=== PATIENT | female | born 1955 | race Caucasian/White ===

== ENCOUNTER 2019-01-24 11:21 | Inpatient (IN) | payer MEDICARE, OTHER ==
--- NOTE | 2019-01-24 12:02 | EDM.PDOC ---
ED HPI GENERAL MEDICAL PROBLEM - General Chief Complaint: ENT Problem Stated Complaint: EAR PAIN,THROAT PAIN, UNABLE TO SWALLOW Time Seen by Provider: 01/24/19 12:02 Source of Information: Reports: Patient History Limitations: Reports: No Limitations - History of Present Illness INITIAL COMMENTS - FREE TEXT/NARRATIVE: 63-year-old female presents to the ED with severe throat pain especially with swallowing. Patient states his throat became sore on evening January 21. Pain has increased over that timeframe. She's not eaten anything solid for 2 days. Pain is rating up into her right ear with swallowing. She is speaking with a hot potato voice. She has not had her tonsils removed to her knowledge. Has had some chills but not aware of any defined fever. Had to sleep sitting up last night due to difficulty clearing her secretions. Denies cough or sputum production. Onset: Gradual Onset Date: 01/21/19 Onset Time: 20:00 Duration: Constant, Getting Worse (Symptoms started on the evening of January 21 and have progressively worsened) Location: Reports: Neck (Severe right sided throat pain radiating into right ear. Occasional pain radiating to left ear) Quality: Reports: Ache, Other (Sharp stabbing pain with swallowing) Severity: Severe Improves with: Reports: None (9 out of 10) Worsens with: Reports: None Context: Reports: Other (spontaneous occurrence over the last 3 and half days). Denies: Activity, Exercise, Lifting, Sick Contact, Trauma Associated Symptoms: Reports: Fever/Chills, Loss of Appetite, Malaise, Nausea/ Vomiting. Denies: Confusion, Chest Pain, Cough, cough w sputum, Diaphoresis ( Chills without defined fever), Headaches (Unable to eat any solids), Rash, Seizure (Occasional nausea), Shortness of Breath, Syncope, Weakness Treatments [employer]: Reports: NSAIDS Throat Pain Score (Numeric/FACES): 9 - Related Data Allergies Allergy/AdvReac Type Severity Reaction Status Date / Time codeine Allergy Hallucinati Verified 07/14/18 14:20 ons lidocaine Allergy Blisters Uncoded 01/24/19 11:29 Home Meds: Home Meds Anti-Depressant? 3 mg PO DAILY 07/14/18 [History] Aspirin 325 mg PO DAILY 07/14/18 [History] Clobetasol [Clobetasol 0.05%] 1 applic TOP ASDIRECTED 07/14/18 [History] Dextroamphetamine/Amphetamine [Adderall] 30 mg PO DAILY 07/14/18 [History] Fish Oil. 1 tab PO DAILY 07/14/18 [History] Furosemide [Lasix] 20 mg PO ASDIRECTED PRN 07/14/18 [History] LORazepam 1 mg PO BID 07/14/18 [History] Levothyroxine 75 mcg PO ACBREAKFAST 07/14/18 [History] Losartan Potassium 12.5 mg PO DAILY 07/14/18 [History] Naproxen 500 mg PO ASDIRECTED PRN 07/14/18 [History] QUEtiapine Fumarate [Quetiapine Fumarate] 400 mg PO BEDTIME 07/14/18 [History] Rosuvastatin Calcium 20 mg PO DAILY 07/14/18 [History] Triamterene/Hydrochlorothiazid [Triamterene-HCTZ 37.5-25 MG] 1 tab PO DAILY 06/21 [History] Past Medical History Cardiovascular History: Reports: High Cholesterol, Hypertension Musculoskeletal History: Reports: Arthritis, Osteoarthritis Psychiatric History: Reports: Anxiety, Depression Endocrine/Metabolic History: Reports: Hypothyroidism - Past Surgical History Musculoskeletal Surgical History: Reports: Other (See Below) Other Musculoskeletal Surgeries/Procedures:: Had extra rib removed Social & Family History - Family History Family Medical History: Noncontributory - Tobacco Use Smoking Status *Q: Current Every Day Smoker Years of Tobacco use: 50 Packs/Tins Daily: 1 Used Tobacco, but Quit: No Second Hand Smoke Exposure: No - Caffeine Use Caffeine Use: Reports: Coffee - Recreational Drug Use Recreational Drug Use: No - Living Situation & Occupation Living situation: Reports: Occupation: Unemployed ED ROS ENT - Review of Systems Review Of Systems: See Below Constitutional: Reports: Chills, Malaise, Weakness, Fatigue, Decreased Appetite (Unable to eat solids. Barely able to keep liquids going.) HEENT: Reports: Glasses, Throat Pain, Throat Swelling Respiratory: Reports: No Symptoms (Severe throat pain bilaterally a little worse in the right side as compared to the left.) Cardiovascular: Reports: No Symptoms Endocrine: Reports: No Symptoms GI/Abdominal: Reports: Decreased Appetite : Reports: No Symptoms Musculoskeletal: Reports: No Symptoms Skin: Reports: No Symptoms Neurological: Reports: No Symptoms Psychiatric: Reports: No Symptoms Hematologic/Lymphatic: Reports: No Symptoms Immunologic: Reports: No Symptoms ED EXAM, ENT - Physical Exam Exam: See Below Exam Limited By: No Limitations General Appearance: Alert, WD/WN, Mild Distress, Other (Does speak with a hot potato voice.) Eye Exam: Bilateral Eye: Normal Inspection Ears: Normal External Exam, Normal TMs, Other (Plenty of cerumen in the left ear canal.) Mouth/Throat: Dry Mucous Membrane, Peritonsillar Mass, Pharyngeal Erythema ( Right side with developing peritonsillar abscess while.), Throat Pain, Throat Swelling (Severe), Other (For the mouth is normal). No: Tongue Swelling ( swelling of the soft palate on the right side appreciated) Head: Atraumatic, Normocephalic Neck: Limited Range of Motion, Lymphadenopathy (R) (Marked pain on palpation of the submandibular node and gland area ), Other (There is some swelling right side of her neck in zone 2). No: Lymphadenopathy (L) Respiratory/Chest: No Respiratory Distress, Lungs Clear, Normal Breath Sounds, No Accessory Muscle Use, Chest Non-Tender Cardiovascular: Normal Peripheral Pulses, Regular Rate, Rhythm, No Edema, No Gallop, No Murmur, No Rub GI/Abdominal: Normal Bowel Sounds, Soft, Non-Tender, No Organomegaly Back: Normal Inspection, Full Range of Motion Extremities: Normal Inspection, Normal Range of Motion, Non-Tender Neurological: Alert, Oriented, CN II-XII Intact, Normal Cognition Skin: Warm, Dry, Intact, Normal Color, No Rash Course - Vital Signs Last Recorded V/S: Last Vital Signs Temp 37.1 C 01/24/19 11:30 Pulse 83 01/24/19 11:30 Resp 14 01/24/19 11:30 BP 128/53 L 01/24/19 11:30 Pulse Ox 96 01/24/19 11:30 - Orders/Labs/Meds Orders: Active Orders 24 hr Category Date Time Status CULTURE BLOOD [BC] Stat Lab 01/24/19 13:00 Received CULTURE BLOOD [BC] Stat Lab 01/24/19 13:15 Received STREP SCRN A RAPID W CULT CONF [RM] Stat Lab 01/24/19 12:09 Ordered Dextrose 5%-0.9% NaCl [Dextrose 5%-Normal Saline] 1,000 Med 01/24/19 12:30 Active ml IV ASDIRECTED cefTRIAXone [Rocephin] 2 gm Med 01/24/19 12:30 Active Sodium Chloride 0.9% [Normal Saline] 100 ml IV Q24H Blood Culture x2 Reflex Set [OM.PC] Stat Oth 01/24/19 12:09 Ordered Medication Orders Ceftriaxone Sodium 2 gm/ (Sodium Chloride) 100 mls @ 200 mls/hr IV Q24H [facility] Last Admin: 01/24/19 13:28 Dose: 200 mls/hr Dextrose/Sodium Chloride (Dextrose 5%-Normal Saline) 1,000 mls @ 999 mls/hr IV ASDIRECTED [facility] Last Admin: 01/24/19 13:28 Dose: 999 mls/hr Labs: Laboratory Tests 01/24/19 01/24/19 Range/Units 13:00 13:00 WBC 18.37 H (3.98-10.04) K/mm3 RBC 4.70 (3.98-5.22) M/mm3 Hgb 13.0 (11.2-15.7) gm/L Hct 39.0 (34.1-44.9) % MCV 83.0 (79.4-94.8) fl MCH 27.7 (25.6-32.2) pg MCHC 33.3 (32.2-35.5) g/dl RDW Std Deviation 45.3 (36.4-46.3) fL Plt Count 291 D (182-369) K/mm3 MPV 9.4 (9.4-12.3) fl Neutrophils % (Manual) 85 H (40-60) % Band Neutrophils % 0 (0-10) % Lymphocytes % (Manual) 12 L (20-40) % Atypical Lymphs % 0 % Monocytes % (Manual) 3 (2-10) % Eosinophils % (Manual) 0 L (0.7-5.8) % Basophils % (Manual) 0 L (0.1-1.2) Platelet Estimate Adequate RBC Morph Comment Normal Sodium 137 (136-145) mEq/L Potassium 3.1 L (3.5-5.1) mEq/L Chloride 98 (98-107) mEq/L Carbon Dioxide 29 (21-32) mEq/L Anion Gap 13.1 (5-15) BUN 10 (7-18) mg/dL Creatinine 0.7 (0.55-1.02) mg/dL Est Cr Clr Drug Dosing 83.73 mL/min Estimated GFR (MDRD) > 60 (>60) mL/min BUN/Creatinine Ratio 14.3 (14-18) Glucose 98 (80-115) mg/dL Calcium 9.0 (8.5-10.1) mg/dL Total Bilirubin 0.5 (0.2-1.0) mg/dL AST 16 (15-37) U/L ALT 26 (14-59) U/L Alkaline Phosphatase 89 (46-116) U/L C-Reactive Protein 37.4 H* (<1.0) mg/dL Total Protein 7.2 (6.4-8.2) g/dl Albumin 3.4 (3.4-5.0) g/dl Globulin 3.8 gm/dL Albumin/Globulin Ratio 0.9 L (1-2) Meds: Medications Generic Name Dose Route Start Last Admin Trade Name Freq PRN Reason Stop Dose Admin Ceftriaxone Sodium 2 gm/ 100 mls @ 200 mls/hr 01/24/19 12:30 01/24/19 13:28 Sodium Chloride IV 200 mls/hr Q24H JAVID Administration Dextrose/Sodium Chloride 1,000 mls @ 999 mls/hr 01/24/19 12:30 01/24/19 13:28 Dextrose 5%-Normal Saline IV 999 mls/hr ASDIRECTED JAVID Administration Discontinued Medications Generic Name Dose Route Start Last Admin Trade Name Freq PRN Reason Stop Dose Admin Clindamycin Phosphate Confirm 01/24/19 14:10 01/24/19 14:21 Cleocin Administered 01/24/19 14:11 Not Given Dose 900 mg .ROUTE .STK-MED ONE Dexamethasone 10 mg 01/24/19 12:22 01/24/19 13:13 Dexamethasone IVPUSH 01/24/19 12:23 10 mg ONETIME ONE Administration Hydromorphone HCl 1 mg 01/24/19 12:10 01/24/19 13:08 Dilaudid IVPUSH 01/24/19 12:11 1 mg ONETIME ONE Administration Clindamycin Phosphate 900 mg/ 106 mls @ 200 mls/hr 01/24/19 13:59 01/24/19 14 :22 Sodium Chloride IV 01/24/19 14:30 200 mls/hr ONETIME ONE Administration Iopamidol 100 ml 01/24/19 12:59 01/24/19 12:59 Isovue-300 (61%) IVPUSH 01/24/19 13:00 100 ml ONETIME ONE Administration Ondansetron HCl 4 mg 01/24/19 12:10 01/24/19 13:12 Zofran IVPUSH 01/24/19 12:11 4 mg ONETIME ONE Administration Sodium Chloride 10 ml 01/24/19 12:59 01/24/19 12:59 Saline Flush FLUSH 01/24/19 13:00 10 ml ONETIME ONE Administration - Radiology Interpretation Free Text/Narrative:: 63-year-old female presents to the ED with gradually worsening sore throat over the last 3-1/2 days. She can barely swallow at this time. Low-grade fever and some chills. Severe pain radiating up into her right ear with swallowing occasionally into the left ear. Examination reveals a developing peritonsillar abscess on the right side with anterior shift of the soft palate. I was unable to visualize the tonsil itself. She does have significant trismus. She can still open 2-1/2 cm in the midline. Plan IV will be D5 normal saline at open. Will give her Dilaudid 1 mg with Reglan 10 mg IV for pain relief. She will have routine labs including blood cultures 2. And throat culture. Will give her Rocephin 2 g IV Unasyn his blood cultures 2 been collected. Dexamethasone 10 mg IV as well. She will have CT soft tissues of the neck to see if there is a peritonsillar abscess large enough to require drainage. - Re-Assessments/Exams Free Text/Narrative Re-Assessment/Exam: 01/24/19 13:57 Lab reveals an elevated white count is at 18.37 with a left shift of 85% neutrophils and no bands. Hemoglobin is 13.0 with hematocrit of 39.0. MCV is 83.0. Sodium 137 with potassium low at 3.1 as she's not been able to eat solids for 3 days. Chloride is 98 with a bicarbonate of 29. Anion gap is 13.1. BUN is 10 with a creatinine of 0.7. GFR remains greater than 60. Glucose is 98 with a calcium of 9.0. Liver function is normal. C-reactive protein is 37.4. Total protein is 7.2 with an albumin fraction of 3.4. CT of the neck soft tissue with IV contrast performed. Identified uvula to be thickened compatible with soft tissue swelling. Soft tissue swelling is noted within the right parapharyngeal soft tissues which causes mass effect with midline shift and narrowing of the hypopharynx. This soft tissue swelling occurs inferiorly to almost the level of the vocal cords. Small low density finding is seen within the right side of the palatine tonsils suspicious for small developing abscess which measures around 1.5 cm. No adenopathy is seen. Small portion of the visualized lung apices are clear. Parotid and submandibular glands are within normal limits. Paranasal sinuses showed nothing acute. Previous cervical spine surgery noted with scattered degenerative changes. 01/24/19 14:00: Placed a call to [facility] in [place] in regards to ENT phone consultation.Dr Mendieta is alteration hand for [facility] hospitals . They will locate him and have him call us back. 01/24/19 14:40: Dr Mendieta did call back. He agrees that if the abscess is not larger than 2-2.5 cm it does not require surgical drainage. He advised continuing Rocephin 2 g every 24 hours and clindamycin 600 mg every 6 hours and dexamethasone for a total of 20 mg. I have spoken with Dr. Serna alteration hand hospitalist and he has agreed to admitting the patient to the med surgery floor on telemetry. Of note the patient only received dexamethasone 10 mg while in the ED under my care. Another 10 mg could be given in 3 hours or so. Departure - Departure Time of Disposition: 14:55 Disposition: Admitted As Inpatient 64 Condition: Fair Clinical Impression: Peritonsillar abscess - Discharge Information *PRESCRIPTION DRUG MONITORING PROGRAM REVIEWED*: No *COPY OF PRESCRIPTION DRUG MONITORING REPORT IN PATIENT SHAYNE: No Referrals: Kaur Pena PA [Primary Care Provider] - Forms: ED Department Discharge - My Orders Last 24 Hours: My Active Orders 01/24/19 12:09 STREP SCRN A RAPID W CULT CONF [RM] Stat Blood Culture x2 Reflex Set [OM.PC] Stat 01/24/19 12:30 Dextrose 5%-0.9% NaCl [Dextrose 5%-Normal Saline] 1,000 ml IV ASDIRECTED cefTRIAXone [Rocephin] 2 gm Sodium Chloride 0.9% [Normal Saline] 100 ml IV Q24H 01/24/19 13:00 CULTURE BLOOD [BC] Stat 01/24/19 13:15 CULTURE BLOOD [BC] Stat - Assessment/Plan Last 24 Hours: My Active Orders 01/24/19 12:09 STREP SCRN A RAPID W CULT CONF [RM] Stat Blood Culture x2 Reflex Set [OM.PC] Stat 01/24/19 12:30 Dextrose 5%-0.9% NaCl [Dextrose 5%-Normal Saline] 1,000 ml IV ASDIRECTED cefTRIAXone [Rocephin] 2 gm Sodium Chloride 0.9% [Normal Saline] 100 ml IV Q24H 01/24/19 13:00 CULTURE BLOOD [BC] Stat 01/24/19 13:15 CULTURE BLOOD [BC] Stat
[2019-01-24] MEDS ORDERED: HYDROmorphone 1 MG/ML Syringe IVPUSH ONE (12:10)
[2019-01-24] MEDS ORDERED: Ondansetron 4 MG/2 ML SDV IVPUSH ONE (12:10)
[2019-01-24] MEDS ORDERED: Dexamethasone 10 MG/ML SDV IVPUSH ONE ×2 (12:22→19:20)
[2019-01-24] MEDS ORDERED: Dextrose 5%-0.9% NaCl 1,000 ML IV SCH (12:30)
[2019-01-24] MEDS ORDERED: Sodium Chloride 0.9% 10 ML Syringe FLUSH ONE (12:59)
[2019-01-24] MEDS ORDERED: Iopamidol 612 MG/ML 100 ML Bottle IVPUSH ONE (12:59)
[2019-01-24] MEDS: cefTRIAXone 2 GM in Sodium Chloride 0.9% 100 ML IV SCH (13:28)
--- NOTE | 2019-01-24 13:42 | CT ---
CT neck Technique: Multiple axial sections were obtained from above the external auditory canal inferiorly to the lung apices. Intravenous contrast was utilized. Findings: Uvula is thickened compatible with soft tissue swelling. Soft tissue swelling is noted within the right parapharyngeal soft tissues which causes mass effect with midline shift and narrowing of the hypopharynx. This soft tissue swelling occurs inferiorly to almost the level of the vocal cords. Small low density finding is seen within the right side of the palatine tonsils suspicious for small developing abscess which measures around 1.5 cm. No adenopathy is seen. Small portion of the visualized lung apices are clear. Parotid and submandibular salivary glands are within normal limits. Paranasal sinuses showed nothing acute. Previous cervical spine surgery is noted with scattered degenerative change. Impression: 1. Soft tissue swelling within the right parapharyngeal soft tissues as noted above. Probable developing small abscess within the region of the right palatine tonsils measuring about 1.5 cm. 2. Soft tissue swelling within the uvula. Diagnostic code #5
[2019-01-24] MEDS ORDERED: Clindamycin Phosphate 900 MG in Sodium Chloride 0.9% 100 ML IV ONE (13:59)
[2019-01-24] MEDS ORDERED: Clindamycin Phosphate 900 MG/6 ML SDV ONE (14:10)
--- NOTE | 2019-01-24 15:12 | PCM.HP ---
H&P History of Present Illness - General Date of Service: 01/24/19 Admit Problem/Dx: Admission Diagnosis/Problem Admission Diagnosis/Problem Peritonsillar abscess Source of Information: Patient, Old Records, Provider, RN, RN Notes Reviewed History Limitations: Reports: No Limitations - History of Present Illness Initial Comments - Free Text/Narative: Eve Uribe is a 63 yo female who presented to our ED on 01/24/19 with throat pain and difficulty swallowing. She reports she first noted soreness in her throat on the evening of January 21 and it has progressively gotten worse. She's not had anything solid E for 2 days. Pain radiates up into her right ear when she swallows and she is also noted to have a hot potato voice. She reports chills but no fever she is aware of. She does note that she had a sleep sitting up in a chair the night prior to arrival due to difficulty with secretions. Denies any cough or sputum production. She believes she still has her tonsils. in the ED temperature 37.1 Celsius. Pulse 83. Respirations 14. Blood pressure 120/53. Pulse ox 96%. Labs are obtained: WBC is 18.37. RBC 4.70. Hemoglobin 13.0. Hematocrit 39.0. She is normocytic. Platelets are good at 291,000. Neutrophils are elevated at 85%. There is no bandemia. Sodium is 137. Potassium 3.1. Chloride 98. Carbon dioxide 29. Anion gap is 13.1. BUN is 10. Creatinine 0.7. EGFR greater than 60. Glucose is 98. Calcium 9.0. Total bilirubin 0.5. AST is 16, ALT 26, alkaline phosphatase 89. CRP is very high at 37.4. Protein 7.2. Albumin 3.4. On physical exam she is noted to have significant throat swelling along with swelling to the right side of her neck in zone 2. She is also noted to have a developing peritonsillar abscess on the right side with anterior shift of the soft palate. She is given a 1 L bolus of D5NS and blood cultures are obtained. CT scan of the neck is obtained and interpreted by Dr. Alston as "1. Soft tissue swelling within the right parapharyngeal soft tissues as noted above. Probable developing small abscess within the region of the right palatine tonsil measuring about 1.5 cm. 2. Soft tissue swelling within the uvula." She is started on 2 g IV Rocephin and given 10 mg IV push dexamethasone. Dr. Mendieta, on-call ENT for both hospitals in [place] is contacted and agrees that if the abscess is not larger than 2- 2.5 cm it will not require surgical drainage. he recommends continuing Rocephin 2 g every 24 hours and clindamycin 600 every 6 hours. He also recommend that the max is on for total 20 mg. Rapid strep screen was negative. She carries a history of HLD, HTN, arthritis, osteoarthritis, anxiety, vertigo, depression, hypothyroidism. She is a current daily smoker. She is a full code. Her PCP is Kaur ePna PA-C. She is subsequently admitted to the medical floor for management of her developing peritonsillar abscess. Throat Pain Score (Numeric/FACES): 9 - Related Data Allergies/Adverse Reactions: Allergies Allergy/AdvReac Type Severity Reaction Status Date / Time codeine Allergy Hallucinati Verified 01/24/19 15:48 ons lidocaine Allergy Blisters Uncoded 01/24/19 15:48 Home Medications: Home Meds Aspirin 325 mg PO DAILY 07/14/18 [History] Clobetasol [Clobetasol 0.05%] 1 applic TOP ASDIRECTED 07/14/18 [History] Dextroamphetamine/Amphetamine [Adderall] 30 mg PO DAILY 07/14/18 [History] Furosemide [Lasix] 20 mg PO DAILY 07/14/18 [History] LORazepam 1 mg PO BID PRN 07/14/18 [History] Levothyroxine 75 mcg PO ACBREAKFAST 07/14/18 [History] Losartan Potassium 12.5 mg PO DAILY 07/14/18 [History] QUEtiapine Fumarate [Quetiapine Fumarate] 200 mg PO BEDTIME 07/14/18 [History] Rosuvastatin Calcium 20 mg PO Q48H 07/14/18 [History] Triamterene/Hydrochlorothiazid [Triamterene-HCTZ 37.5-25 MG] 1 tab PO DAILY 06/21 [History] Acetaminophen [Tylenol Arthritis] 1,300 mg PO BID 01/24/19 [History] Cariprazine Hydrochloride [Vraylar] 3 mg PO 1300 01/24/19 [History] Cholecalciferol (Vitamin D3) [Vitamin D3] 5,000 unit PO DAILY 01/24/19 [History] Cyclobenzaprine [Flexeril] 5 mg PO DAILY PRN 01/24/19 [History] Docusate Sodium [Colace] 100 mg PO DAILY PRN 01/24/19 [History] Gabapentin [Neurontin] 300 mg PO DAILY 01/24/19 [History] Gabapentin [Neurontin] 600 mg PO BEDTIME 01/24/19 [History] Gluc HCl/Csa/Job Hy/Hyalur Ac [Glucosamine Chondroitin] 1 cap PO DAILY [History] Magnesium Oxide 400 mg PO DAILY 01/24/19 [History] Potassium 198 mg PO DAILY 01/24/19 [History] amLODIPine [Norvasc] 5 mg PO DAILY 01/24/19 [History] Past Medical History Cardiovascular History: Reports: High Cholesterol, Hypertension Musculoskeletal History: Reports: Arthritis, Osteoarthritis Psychiatric History: Reports: Anxiety, Depression Endocrine/Metabolic History: Reports: Hypothyroidism - Past Surgical History Musculoskeletal Surgical History: Reports: Other (See Below) Other Musculoskeletal Surgeries/Procedures:: Had extra rib removed Social & Family History - Family History Family Medical History: Noncontributory - Tobacco Use Smoking Status *Q: Current Every Day Smoker Years of Tobacco use: 50 Packs/Tins Daily: 1 Used Tobacco, but Quit: No Second Hand Smoke Exposure: No - Caffeine Use Caffeine Use: Reports: Coffee - Recreational Drug Use Recreational Drug Use: No - Living Situation & Occupation Living situation: Reports: Occupation: Unemployed H&P Review of Systems - Review of Systems: Review Of Systems: See Below General: Reports: Chills, Malaise, Weakness, Fatigue. Denies: Fever HEENT: Reports: Sore Throat (worse on right side - radiating up into right ear ) , Other (Throat swelling, difficulty/pain with eating ). Denies: Eye Pain, Headaches, Rhinitis Pulmonary: Reports: No Symptoms. Denies: Shortness of Breath, Wheezing, Cough, Sputum Cardiovascular: Reports: No Symptoms. Denies: Chest Pain, Palpitations, Dyspnea on Exertion, Edema Gastrointestinal: Reports: No Symptoms, Decreased Appetite. Denies: Abdominal Pain, Constipation, Diarrhea, Nausea, Vomiting Genitourinary: Reports: No Symptoms. Denies: Pain Musculoskeletal: Reports: No Symptoms Skin: Reports: No Symptoms. Denies: Cyanosis Psychiatric: Reports: No Symptoms. Denies: Confusion Neurological: Reports: Trouble Speaking (2/2 pain), Weakness. Denies: Dizziness , Numbness, Tingling, Difficulty Walking, Gait Disturbance Hematologic/Lymphatic: Reports: No Symptoms Immunologic: Reports: No Symptoms Exam - Exam Exam: See Below - Vital Signs Vital Signs: Last Vital Signs Temp 98.7 F 01/24/19 11:30 Pulse 83 01/24/19 11:30 Resp 14 01/24/19 11:30 BP 128/53 L 01/24/19 11:30 Pulse Ox 96 01/24/19 11:30 Weight: 221 lb - Exam Quality Assessment: DVT Prophylaxis General: Alert, Oriented, Cooperative HEENT: Conjunctiva Clear, EACs Clear, Hearing Intact, Nares Patent, Other ("Hot potato voice"; peritonsilar mass, Peritonsillar erythma with apparent developing abscess on right; Swelling of soft palate on right; ), PERRLA. No: Mucosa Moist & [place] (dry) Neck: Trachea Midline, Lymphadenopathy (right ), Other (Rght neck swelling in zone 2). No: Full Range of Motion (2/2 pain) Lungs: Clear to Auscultation, Normal Respiratory Effort Cardiovascular: Regular Rate, Regular Rhythm GI/Abdominal Exam: Normal Bowel Sounds, Soft, Non-Tender, No Distention (Female) Exam: Deferred Rectal (Female) Exam: Deferred Back Exam: Normal Inspection, Full Range of Motion Extremities: Normal Inspection, Normal Range of Motion, Non-Tender, No Pedal Edema, Normal Capillary Refill Peripheral Pulses: 2+: Radial (L), Radial (R), Dorsalis Pedis (L), Dorsalis Pedis (R) Skin: Warm, Dry, Intact Neurological: Cranial Nerves Intact (Grossly ) Neuro Extensive - Mental Status: Alert, Oriented x3, Normal Mood/Affect - Patient Data Lab Results Last 24 hrs: Laboratory Results - last 24 hr 01/24/19 01/24/19 Range/Units 13:00 13:00 WBC 18.37 H (3.98-10.04) K/mm3 RBC 4.70 (3.98-5.22) M/mm3 Hgb 13.0 (11.2-15.7) gm/L Hct 39.0 (34.1-44.9) % MCV 83.0 (79.4-94.8) fl MCH 27.7 (25.6-32.2) pg MCHC 33.3 (32.2-35.5) g/dl RDW Std Deviation 45.3 (36.4-46.3) fL Plt Count 291 D (182-369) K/mm3 MPV 9.4 (9.4-12.3) fl Neutrophils % (Manual) 85 H (40-60) % Band Neutrophils % 0 (0-10) % Lymphocytes % (Manual) 12 L (20-40) % Atypical Lymphs % 0 % Monocytes % (Manual) 3 (2-10) % Eosinophils % (Manual) 0 L (0.7-5.8) % Basophils % (Manual) 0 L (0.1-1.2) Platelet Estimate Adequate RBC Morph Comment Normal Sodium 137 (136-145) mEq/L Potassium 3.1 L (3.5-5.1) mEq/L Chloride 98 (98-107) mEq/L Carbon Dioxide 29 (21-32) mEq/L Anion Gap 13.1 (5-15) BUN 10 (7-18) mg/dL Creatinine 0.7 (0.55-1.02) mg/dL Est Cr Clr Drug Dosing 83.73 mL/min Estimated GFR (MDRD) > 60 (>60) mL/min BUN/Creatinine Ratio 14.3 (14-18) Glucose 98 (80-115) mg/dL Calcium 9.0 (8.5-10.1) mg/dL Total Bilirubin 0.5 (0.2-1.0) mg/dL AST 16 (15-37) U/L ALT 26 (14-59) U/L Alkaline Phosphatase 89 (46-116) U/L C-Reactive Protein 37.4 H* (<1.0) mg/dL Total Protein 7.2 (6.4-8.2) g/dl Albumin 3.4 (3.4-5.0) g/dl Globulin 3.8 gm/dL Albumin/Globulin Ratio 0.9 L (1-2) Result Diagrams: 01/24/19 13:00 01/24/19 13:00 - Problem List (1) Hypokalemia SNOMED Code(s): 87098614 ICD Code: E87.6 - HYPOKALEMIA Status: Acute Current Visit: Yes (2) Peritonsillar abscess SNOMED Code(s): 41574778 ICD Code: J36 - PERITONSILLAR ABSCESS Status: Acute Current Visit: Yes Problem List Initiated/Reviewed/Updated: Yes Orders Last 24hrs: Active Orders 24 hr Category Date Time Status Patient Status [ADT] Routine ADT 01/24/19 15:09 Active CULTURE BLOOD [BC] Stat Lab 01/24/19 13:00 Received CULTURE BLOOD [BC] Stat Lab 01/24/19 13:15 Received STREP SCRN A RAPID W CULT CONF [RM] Stat Lab 01/24/19 12:09 Ordered Dextrose 5%-0.9% NaCl [Dextrose 5%-Normal Saline] 1,000 Med 01/24/19 12:30 Active ml IV ASDIRECTED cefTRIAXone [Rocephin] 2 gm Med 01/24/19 12:30 Active Sodium Chloride 0.9% [Normal Saline] 100 ml IV Q24H Blood Culture x2 Reflex Set [OM.PC] Stat Oth 01/24/19 12:09 Ordered Medication Orders Ceftriaxone Sodium 2 gm/ (Sodium Chloride) 100 mls @ 200 mls/hr IV Q24H [facility] Last Admin: 01/24/19 13:28 Dose: 200 mls/hr Dextrose/Sodium Chloride (Dextrose 5%-Normal Saline) 1,000 mls @ 999 mls/hr IV ASDIRECTED JAVID Last Admin: 01/24/19 13:28 Dose: 999 mls/hr Assessment/Plan Comment:: I/P: Acute: Peritonsillar abscess -Reports throat pain getting progressively worse starting 01/21/19 -Unable to swallow solid foods - no good intake for past 2 days -Pain more on right side, radiating up into right ear -CT scan obtained in ED on 01/24/19: * 1. Soft tissue swelling within the right parapharyngeal soft tissues as noted above. Probable developing small abscess within the region of the right palatine tonsils measuring about 1.5 cm. * 2. Soft tissue swelling within the uvula -Rapid strep negative -Blood cultures pending -WBC 18.37 -CRP 37.4 -Rocephin 2gm given in ED - Continue -1L D5NS bolus given in ED -Dr. Mendieta, ENT, contacted in ED: * Agrees no surgical drainage required if abscess is less than 2-2.5 cm * Recommends continuing Rocephin 2 g every 24 hours * Recommends adding clindamycin 600 mg every 6 hours * Recommends dexamethasone for total of 20 mg. -Clindamycin started in ED - continue -Dexamethasone 10mg given in ED - consider second dose -Clear liquid diet - advance as tolerated -IV fluids as ordered -NSAIDs for pain Hypokalemia -Potassium 3.1 -Likely 2/2 poor oral intake, unable to take home supplementation 2/2 pain -Supplement Tobacco use disorder -Daily smoker -Nicotine patch ordered -Cessation counseling on discharge Chronic: HLD HTN Arthritis OA Depression Anxiety Hypothyroidism Vertigo Plan: Admit to medical floor Other orders as indicated above Home medications as ordered Routine AM labs DVT prophylaxis: QUE cummings and ambulation Code status: Full code; PCP: Kaur Pena PA-C
[2019-01-24] MEDS ORDERED: Ondansetron 4 MG/2 ML SDV IV PRN (15:30)
[2019-01-24] MEDS ORDERED: Nicotine 21 MG/24 Hr Patch TRDERM SCH (15:45)
[2019-01-24] MEDS: Sodium Chloride 0.9% 1,000 ML IV SCH (16:14)
[2019-01-24] MEDS: Potassium Chloride 10 MEQ in Premix Bag 1 BAG IV SCH ×6 (16:15→21:34)
[2019-01-24] MEDS ORDERED: LORazepam 1 MG Tab PO PRN (16:30)
[2019-01-24] MEDS ORDERED: Docusate Sodium 100 MG Cap PO PRN (16:30)
[2019-01-24] MEDS: Ibuprofen 600 MG Tab PO PRN (18:53)
[2019-01-24] MEDS: Gabapentin 600 MG Tab PO SCH (20:10)
[2019-01-24] MEDS: QUEtiapine 100 MG Tab PO SCH (20:10)
[2019-01-24] MEDS ORDERED: Clindamycin Phosphate 900 MG in Sodium Chloride 0.9% 100 ML IV SCH (22:00)
[2019-01-24] MEDS: Clindamycin Phosphate in D5W 900 MG in Premix Bag 1 BAG IV SCH ×2 (22:41)
[2019-01-24] MEDS: Aluminum Hydroxide/Magnesium Hydroxide/Simethicone Susp 30 ML Cup PO PRN (22:55)
[2019-01-25] MEDS: Sodium Chloride 0.9% 1,000 ML IV SCH (01:54)
[2019-01-25] MEDS: Levothyroxine 75 MCG Tab PO SCH (05:16)
[2019-01-25] MEDS: Clindamycin Phosphate in D5W 900 MG in Premix Bag 1 BAG IV SCH ×8 (05:17→22:35)
[2019-01-25] MEDS ORDERED: Hydrochlorothiazide/Triamterene 25-37.5 MG Cap PO SCH (09:00)
[2019-01-25] MEDS ORDERED: NICOTINE PATCH REMOVAL TRDERM SCH (09:00)
[2019-01-25] MEDS: amLODIPine 5 MG Tab PO SCH (09:06)
[2019-01-25] MEDS: Aspirin 325 MG Tab.EC PO SCH (09:07)
[2019-01-25] MEDS: Gabapentin 300 MG Cap PO SCH (09:07)
[2019-01-25] MEDS: Magnesium Oxide 400 MG Tab PO SCH (09:07)
[2019-01-25] MEDS: Losartan 25 MG Tab PO SCH (09:07)
[2019-01-25] MEDS: Nicotine 14 MG/24 Hr Patch TRDERM SCH (09:08)
--- NOTE | 2019-01-25 09:47 | PCM.PN ---
- General Info Date of Service: 01/25/19 Admission Dx/Problem (Free Text): Admission Diagnosis/Problem Admission Diagnosis/Problem Peritonsillar abscess Subjective Update: Eve did well overnight. Denies fever or chills. Able to tolerate liquid diet and would like to advance diet. Day 2 of IV antibiotics. Received a second dose of dexamethasone 10 mg last night. Functional Status: Reports: Pain Controlled - Review of Systems General: Reports: No Symptoms. Denies: Fever HEENT: Reports: Sore Throat Pulmonary: Reports: No Symptoms. Denies: Shortness of Breath, Cough Cardiovascular: Reports: No Symptoms. Denies: Chest Pain Gastrointestinal: Reports: No Symptoms. Denies: Abdominal Pain - Patient Data Vitals - Most Recent: Last Vital Signs Temp 97.5 F 01/25/19 03:40 Pulse 78 01/25/19 03:40 Resp 16 01/25/19 03:40 BP 107/72 01/25/19 09:07 Pulse Ox 94 L 01/25/19 03:40 Weight - Most Recent: 229 lb 8 oz I&O - Last 24 Hours: Intake & Output 01/24/19 01/25/19 01/25/19 22:59 06:59 14:59 Intake Total 1270 2319 Output Total 2170 Balance 1270 149 Lab Results Last 24 Hours: Laboratory Results - last 24 hr 01/24/19 01/24/19 01/25/19 Range/Units 13:00 13:00 05:30 WBC 18.37 H 15.16 H (3.98-10.04) K/mm3 RBC 4.70 4.21 (3.98-5.22) M/mm3 Hgb 13.0 11.7 (11.2-15.7) gm/L Hct 39.0 35.2 (34.1-44.9) % MCV 83.0 83.6 (79.4-94.8) fl MCH 27.7 27.8 (25.6-32.2) pg MCHC 33.3 33.2 (32.2-35.5) g/dl RDW Std Deviation 45.3 45.1 (36.4-46.3) fL Plt Count 291 D 288 (182-369) K/mm3 MPV 9.4 10.0 (9.4-12.3) fl Neut % (Auto) 89.3 H (34.0-71.1) % Lymph % (Auto) 8.1 L (19.3-51.7) % Craig % (Auto) 2.4 L (4.7-12.5) % Eos % (Auto) 0 L (0.7-5.8) Baso % (Auto) 0.0 L (0.1-1.2) % Neut # (Auto) 13.54 H (1.56-6.13) K/mm3 Lymph # (Auto) 1.23 (1.18-3.74) K/mm3 Craig # (Auto) 0.36 (0.24-0.36) K/mm3 Eos # (Auto) 0.00 L (0.04-0.36) K/mm3 Baso # (Auto) 0.00 L (0.01-0.08) K/mm3 Neutrophils % (Manual) 85 H (40-60) % Band Neutrophils % 0 (0-10) % Lymphocytes % (Manual) 12 L (20-40) % Atypical Lymphs % 0 % Monocytes % (Manual) 3 (2-10) % Eosinophils % (Manual) 0 L (0.7-5.8) % Basophils % (Manual) 0 L (0.1-1.2) Manual Slide Review Abnormal smear Platelet Estimate Adequate RBC Morph Comment Normal Sodium 137 (136-145) mEq/L Potassium 3.1 L (3.5-5.1) mEq/L Chloride 98 (98-107) mEq/L Carbon Dioxide 29 (21-32) mEq/L Anion Gap 13.1 (5-15) BUN 10 (7-18) mg/dL Creatinine 0.7 (0.55-1.02) mg/dL Est Cr Clr Drug Dosing 83.73 mL/min Estimated GFR (MDRD) > 60 (>60) mL/min BUN/Creatinine Ratio 14.3 (14-18) Glucose 98 (80-115) mg/dL Calcium 9.0 (8.5-10.1) mg/dL Magnesium (1.8-2.4) mg/dl Total Bilirubin 0.5 (0.2-1.0) mg/dL AST 16 (15-37) U/L ALT 26 (14-59) U/L Alkaline Phosphatase 89 (46-116) U/L C-Reactive Protein 37.4 H* (<1.0) mg/dL Total Protein 7.2 (6.4-8.2) g/dl Albumin 3.4 (3.4-5.0) g/dl Globulin 3.8 gm/dL Albumin/Globulin Ratio 0.9 L (1-2) 01/25/19 Range/Units 05:30 WBC (3.98-10.04) K/mm3 RBC (3.98-5.22) M/mm3 Hgb (11.2-15.7) gm/L Hct (34.1-44.9) % MCV (79.4-94.8) fl MCH (25.6-32.2) pg MCHC (32.2-35.5) g/dl RDW Std Deviation (36.4-46.3) fL Plt Count (182-369) K/mm3 MPV (9.4-12.3) fl Neut % (Auto) (34.0-71.1) % Lymph % (Auto) (19.3-51.7) % Craig % (Auto) (4.7-12.5) % Eos % (Auto) (0.7-5.8) Baso % (Auto) (0.1-1.2) % Neut # (Auto) (1.56-6.13) K/mm3 Lymph # (Auto) (1.18-3.74) K/mm3 Craig # (Auto) (0.24-0.36) K/mm3 Eos # (Auto) (0.04-0.36) K/mm3 Baso # (Auto) (0.01-0.08) K/mm3 Neutrophils % (Manual) (40-60) % Band Neutrophils % (0-10) % Lymphocytes % (Manual) (20-40) % Atypical Lymphs % % Monocytes % (Manual) (2-10) % Eosinophils % (Manual) (0.7-5.8) % Basophils % (Manual) (0.1-1.2) Manual Slide Review Platelet Estimate RBC Morph Comment Sodium 143 (136-145) mEq/L Potassium 3.8 (3.5-5.1) mEq/L Chloride 106 (98-107) mEq/L Carbon Dioxide 25 (21-32) mEq/L Anion Gap 15.8 H (5-15) BUN 11 (7-18) mg/dL Creatinine 0.7 (0.55-1.02) mg/dL Est Cr Clr Drug Dosing 83.73 mL/min Estimated GFR (MDRD) > 60 (>60) mL/min BUN/Creatinine Ratio 15.7 (14-18) Glucose 129 H (80-115) mg/dL Calcium 9.1 (8.5-10.1) mg/dL Magnesium 2.4 (1.8-2.4) mg/dl Total Bilirubin (0.2-1.0) mg/dL AST (15-37) U/L ALT (14-59) U/L Alkaline Phosphatase (46-116) U/L C-Reactive Protein 21.2 H* (<1.0) mg/dL Total Protein (6.4-8.2) g/dl Albumin (3.4-5.0) g/dl Globulin gm/dL Albumin/Globulin Ratio (1-2) [place] Results Last 24 Hours: Microbiology 01/24/19 15:13 Quick Strep Confirmation Culture - Preliminary Throat Group A Streptococcus Rapid Screen - Final NEGATIVE STREP A SCREEN REFERENCE RANGE: NEGATIVE Med Orders - Current: Current Medications Al Hydroxide/Mg Hydroxide (Mag-Al Plus) 30 ml PO Q4H PRN PRN Reason: Heartburn Last Admin: 01/24/19 22:55 Dose: 30 ml Amlodipine Besylate (Norvasc) 5 mg PO DAILY [facility] Last Admin: 01/25/19 09:06 Dose: 5 mg Aspirin (Ecotrin) 325 mg PO DAILY [facility] Last Admin: 01/25/19 09:07 Dose: 325 mg Docusate Sodium (Colace) 100 mg PO DAILY PRN PRN Reason: Constipation Gabapentin (Neurontin) 300 mg PO DAILY [facility] Last Admin: 01/25/19 09:07 Dose: 300 mg Gabapentin (Neurontin) 600 mg PO BEDTIME [facility] Last Admin: 01/24/19 20:10 Dose: 600 mg Ceftriaxone Sodium 2 gm/ (Sodium Chloride) 100 mls @ 200 mls/hr IV Q24H [facility] Last Admin: 01/24/19 13:28 Dose: 200 mls/hr Clindamycin Phosphate 900 mg/ (Premix) 50 mls @ 100 mls/hr IV Q8H [facility] Last Admin: 01/25/19 05:17 Dose: 100 mls/hr Ibuprofen (Motrin) 600 mg PO Q6H PRN PRN Reason: Pain Last Admin: 01/24/19 18:53 Dose: 600 mg Levothyroxine Sodium (Levothyroxine) 75 mcg PO ACBREAKFAST [facility] Last Admin: 01/25/19 05:16 Dose: 75 mcg Lorazepam (Ativan) 1 mg PO BID PRN PRN Reason: Anxiety Last Admin: 01/25/19 00:43 Dose: 1 mg Losartan Potassium (Cozaar) 12.5 mg PO DAILY [facility] Last Admin: 01/25/19 09:07 Dose: 12.5 mg Magnesium Oxide (Magnesium Oxide) 400 mg PO DAILY [facility] Last Admin: 01/25/19 09:07 Dose: 400 mg Miscellaneous Information (Remove Patch) 1 ea TRDERM DAILY [facility] Last Admin: 01/25/19 09:09 Dose: Not Given Nicotine (Habitrol) 14 mg TRDERM DAILY [facility] Last Admin: 01/25/19 09:08 Dose: Not Given Non-Formulary Medication (Cariprazine Hydrochloride [Vraylar]) 3 mg PO 1300 [facility] Non-Formulary Medication (Dextroamphetamine/Amphetamine [Adderall]) 30 mg PO DAILY [facility] Ondansetron HCl (Zofran) 4 mg IV Q6H PRN PRN Reason: Nausea/Vomiting Quetiapine Fumarate (Seroquel) 200 mg PO BEDTIME [facility] Last Admin: 01/24/19 20:10 Dose: 200 mg Discontinued Medications Clindamycin Phosphate (Cleocin) Confirm Administered Dose 900 mg .ROUTE .STK- MED ONE Stop: 01/24/19 14:11 Last Admin: 01/24/19 14:21 Dose: Not Given Dexamethasone (Dexamethasone) 10 mg IVPUSH ONETIME ONE Stop: 01/24/19 12:23 Last Admin: 01/24/19 13:13 Dose: 10 mg Dexamethasone (Dexamethasone) 10 mg IVPUSH ONETIME ONE Stop: 01/24/19 19:21 Last Admin: 01/24/19 20:00 Dose: 10 mg Hydromorphone HCl (Dilaudid) 1 mg IVPUSH ONETIME ONE Stop: 01/24/19 12:11 Last Admin: 01/24/19 13:08 Dose: 1 mg Dextrose/Sodium Chloride (Dextrose 5%-Normal Saline) 1,000 mls @ 999 mls/hr IV ASDIRECTED JAVID Last Admin: 01/24/19 13:28 Dose: 999 mls/hr Clindamycin Phosphate 900 mg/ (Sodium Chloride) 106 mls @ 200 mls/hr IV ONETIME ONE Stop: 01/24/19 14:30 Last Admin: 01/24/19 14:22 Dose: 200 mls/hr Clindamycin Phosphate 900 mg/ (Sodium Chloride) 106 mls @ 200 mls/hr IV Q8H [facility] Sodium Chloride (Normal Saline) 1,000 mls @ 100 mls/hr IV ASDIRECTED JAVID Stop: 01/25/19 03:16 Last Admin: 01/25/19 01:54 Dose: 100 mls/hr Potassium Chloride 10 meq/ (Premix) 100 mls @ 100 mls/hr IV Q1H [facility] Stop: 01/24/19 21:44 Last Admin: 01/24/19 21:34 Dose: 100 mls/hr Iopamidol (Isovue-300 (61%)) 100 ml IVPUSH ONETIME ONE Stop: 01/24/19 13:00 Last Admin: 01/24/19 12:59 Dose: 100 ml Miscellaneous Information (Remove Patch) 1 ea TRDERM DAILY [facility] Nicotine (Habitrol) 21 mg TRDERM DAILY [facility] Last Admin: 01/24/19 15:42 Dose: Not Given Ondansetron HCl (Zofran) 4 mg IVPUSH ONETIME ONE Stop: 01/24/19 12:11 Last Admin: 01/24/19 13:12 Dose: 4 mg Sodium Chloride (Saline Flush) 10 ml FLUSH ONETIME ONE Stop: 01/24/19 13:00 Last Admin: 01/24/19 12:59 Dose: 10 ml Triamterene/HCTZ (Dyazide 25-37.5 Mg) 1 each PO DAILY [facility]AV[facility] - Exam Quality Assessment: No: Supplemental Oxygen General: Alert, Oriented HEENT: Pupils Equal, Pupils Reactive Neck: Supple Lungs: Clear to Auscultation, Normal Respiratory Effort Cardiovascular: Regular Rate, Regular Rhythm GI/Abdominal Exam: Normal Bowel Sounds, Soft, Non-Tender, No Distention Extremities: Normal Inspection, Normal Range of Motion, Non-Tender, No Pedal Edema Skin: Warm, Dry, Intact Neurological: No New Focal Deficit Psy/Mental Status: Alert, Normal Affect, Normal Mood - Problem List & Annotations (1) Hypokalemia SNOMED Code(s): 30913448 Code(s): E87.6 - HYPOKALEMIA Status: Acute Current Visit: Yes (2) Peritonsillar abscess SNOMED Code(s): 25899340 Code(s): J36 - PERITONSILLAR ABSCESS Status: Acute Current Visit: Yes - Problem List Review Problem List Initiated/Reviewed/Updated: Yes - My Orders Last 24 Hours: My Active Orders 01/25/19 Lunch Soft Diet [DIET] - Plan Plan:: I/P: Acute: Peritonsillar abscess -Reports throat pain getting progressively worse starting 01/21/19 -tolerated clear liquid diet this morning, will advance to soft diet at lunch and if she continues to tolerate this we will advance to a full diet this afternoon -Pain more on right side, radiating up into right ear - improved -CT scan obtained in ED on 01/24/19: * 1. Soft tissue swelling within the right parapharyngeal soft tissues as noted above. Probable developing small abscess within the region of the right palatine tonsils measuring about 1.5 cm. * 2. Soft tissue swelling within the uvula -Rapid strep negative - culture pending -Blood cultures pending -WBC decrease to 15 -CRP decrease to 21.2 -Rocephin 2gm given in ED - Continue -1L D5NS bolus given in ED -Dr. Mendieta, ENT, contacted in ED: * Agrees no surgical drainage required if abscess is less than 2-2.5 cm * Recommends continuing Rocephin 2 g every 24 hours * Recommends adding clindamycin 600 mg every 6 hours * Recommends dexamethasone for total of 20 mg. -Clindamycin started in ED - continue -Dexamethasone 10mg given in ED - second dose given -NSAIDs for pain patient will need a total of at least 2 days IV antibiotics and then can switch her to by mouth. Hypokalemia - resolved -Potassium 3.8 -Likely 2/2 poor oral intake, unable to take home supplementation 2/2 pain -Supplement Tobacco use disorder -Daily smoker -Nicotine patch ordered -Cessation counseling on discharge Chronic: HLD HTN Arthritis OA Depression Anxiety Hypothyroidism Vertigo Plan: Admit to medical floor Other orders as indicated above Home medications as ordered Routine AM labs DVT prophylaxis: QUE hose and ambulation Code status: Full code; PCP: Kaur Pena PA-C plan discharge tomorrow
[2019-01-25] MEDS: cefTRIAXone 2 GM in Sodium Chloride 0.9% 100 ML IV SCH (12:16)
[2019-01-25] MEDS: QUEtiapine 100 MG Tab PO SCH (20:36)
[2019-01-25] MEDS: Gabapentin 600 MG Tab PO SCH (20:36)
[2019-01-25] MEDS: Aluminum Hydroxide/Magnesium Hydroxide/Simethicone Susp 30 ML Cup PO PRN (22:13)
[2019-01-26] MEDS: Ibuprofen 600 MG Tab PO PRN ×3 (04:05→19:23)
[2019-01-26] MEDS: Levothyroxine 75 MCG Tab PO SCH (06:32)
[2019-01-26] MEDS: Clindamycin Phosphate in D5W 900 MG in Premix Bag 1 BAG IV SCH ×6 (06:33→21:58)
[2019-01-26] MEDS: DEXTROAMPHETAMINE PO SCH ×2 (08:42→08:43)
[2019-01-26] MEDS: AMPHETAMINE PO SCH ×2 (08:42→08:43)
[2019-01-26] MEDS: CARIPRAZINE HYDROCHLORIDE 3 MG PO SCH ×2 (08:43→12:28)
[2019-01-26] MEDS: amLODIPine 5 MG Tab PO SCH (08:48)
[2019-01-26] MEDS: Aspirin 325 MG Tab.EC PO SCH (08:49)
[2019-01-26] MEDS: Gabapentin 300 MG Cap PO SCH (08:49)
[2019-01-26] MEDS: Losartan 25 MG Tab PO SCH (08:49)
[2019-01-26] MEDS: Magnesium Oxide 400 MG Tab PO SCH (08:49)
[2019-01-26] MEDS: Nicotine 14 MG/24 Hr Patch TRDERM SCH (08:50)
[2019-01-26] MEDS: cefTRIAXone 2 GM in Sodium Chloride 0.9% 100 ML IV SCH (11:43)
--- NOTE | 2019-01-26 16:01 | PCM.PN ---
- General Info Date of Service: 01/26/19 Admission Dx/Problem (Free Text): Admission Diagnosis/Problem Admission Diagnosis/Problem Peritonsillar abscess Subjective Update: January 25, 2019 Eve did well overnight. Denies fever or chills. Able to tolerate liquid diet and would like to advance diet. Day 2 of IV antibiotics. Received a second dose of dexamethasone 10 mg last night. January 26, 2019 Patient complains of increasing swelling in the back of her throat and pain. She denies difficulty swallowing. She has been afebrile and has had a decrease in her C-reactive protein. Functional Status: Reports: Pain Controlled - Review of Systems General: Reports: No Symptoms. Denies: Fever, Chills HEENT: Reports: Sore Throat Pulmonary: Reports: No Symptoms Cardiovascular: Reports: No Symptoms Gastrointestinal: Reports: No Symptoms. Denies: Abdominal Pain - Patient Data Vitals - Most Recent: Last Vital Signs Temp 98.1 F 01/26/19 11:37 Pulse 75 01/26/19 11:37 Resp 16 01/26/19 11:37 BP 134/62 01/26/19 11:37 Pulse Ox 97 01/26/19 11:37 Weight - Most Recent: 233 lb 9.6 oz I&O - Last 24 Hours: Intake & Output 01/26/19 01/26/19 01/26/19 06:59 14:59 22:59 Intake Total 1150 360 Output Total 1200 Balance -50 360 Lab Results Last 24 Hours: Laboratory Results - last 24 hr 01/26/19 01/26/19 Range/Units 05:20 05:20 WBC 15.13 H (3.98-10.04) K/mm3 RBC 4.14 (3.98-5.22) M/mm3 Hgb 11.5 (11.2-15.7) gm/L Hct 34.7 (34.1-44.9) % MCV 83.8 (79.4-94.8) fl MCH 27.8 (25.6-32.2) pg MCHC 33.1 (32.2-35.5) g/dl RDW Std Deviation 45.7 (36.4-46.3) fL Plt Count 315 (182-369) K/mm3 MPV 9.8 (9.4-12.3) fl Neut % (Auto) 72.5 H (34.0-71.1) % Lymph % (Auto) 19.2 L (19.3-51.7) % [place] % (Auto) 7.6 (4.7-12.5) % Eos % (Auto) 0.3 L (0.7-5.8) Baso % (Auto) 0.1 (0.1-1.2) % Neut # (Auto) 10.96 H (1.56-6.13) K/mm3 Lymph # (Auto) 2.91 (1.18-3.74) K/mm3 [place] # (Auto) 1.15 H (0.24-0.36) K/mm3 Eos # (Auto) 0.04 (0.04-0.36) K/mm3 Baso # (Auto) 0.02 (0.01-0.08) K/mm3 Sodium 142 (136-145) mEq/L Potassium 3.5 (3.5-5.1) mEq/L Chloride 107 (98-107) mEq/L Carbon Dioxide 25 (21-32) mEq/L Anion Gap 13.5 (5-15) BUN 16 (7-18) mg/dL Creatinine 0.7 (0.55-1.02) mg/dL Est Cr Clr Drug Dosing 83.73 mL/min Estimated GFR (MDRD) > 60 (>60) mL/min BUN/Creatinine Ratio 22.9 H (14-18) Glucose 93 (80-115) mg/dL Calcium 8.5 (8.5-10.1) mg/dL Magnesium 2.1 (1.8-2.4) mg/dl C-Reactive Protein 8.8 H* (<1.0) mg/dL [facility] Results Last 24 Hours: Microbiology 01/24/19 15:13 Quick Strep Confirmation Culture - Final Throat Beta Streptococcus Group F Group A Streptococcus Rapid Screen - Final NEGATIVE STREP A SCREEN REFERENCE RANGE: NEGATIVE 01/24/19 13:15 Aerobic Blood Culture - Preliminary Blood - Venous - Lab Draw NO GROWTH AFTER 2 DAYS Anaerobic Blood Culture - Preliminary NO GROWTH AFTER 2 DAYS 01/24/19 13:00 Aerobic Blood Culture - Preliminary Blood - Venous NO GROWTH AFTER 2 DAYS Anaerobic Blood Culture - Preliminary NO GROWTH AFTER 2 DAYS Med Orders - Current: Current Medications Al Hydroxide/Mg Hydroxide (Mag-Al Plus) 30 ml PO Q4H PRN PRN Reason: Heartburn Last Admin: 01/25/19 22:13 Dose: 30 ml Amlodipine Besylate (Norvasc) 5 mg PO DAILY [facility] Last Admin: 01/26/19 08:48 Dose: 5 mg Aspirin (Ecotrin) 325 mg PO DAILY [facility] Last Admin: 01/26/19 08:49 Dose: 325 mg Docusate Sodium (Colace) 100 mg PO DAILY PRN PRN Reason: Constipation Gabapentin (Neurontin) 300 mg PO DAILY [facility] Last Admin: 01/26/19 08:49 Dose: 300 mg Gabapentin (Neurontin) 600 mg PO BEDTIME [facility] Last Admin: 01/25/19 20:36 Dose: 600 mg Ceftriaxone Sodium 2 gm/ (Sodium Chloride) 100 mls @ 200 mls/hr IV Q24H [facility] Last Admin: 01/26/19 11:43 Dose: 200 mls/hr Clindamycin Phosphate 900 mg/ (Premix) 50 mls @ 100 mls/hr IV Q8H [facility] Last Admin: 01/26/19 13:56 Dose: 100 mls/hr Ibuprofen (Motrin) 600 mg PO Q6H PRN PRN Reason: Pain Last Admin: 01/26/19 12:26 Dose: 600 mg Levothyroxine Sodium (Levothyroxine) 75 mcg PO ACBREAKFAST [facility] Last Admin: 01/26/19 06:32 Dose: 75 mcg Lorazepam (Ativan) 1 mg PO BID PRN PRN Reason: Anxiety Last Admin: 01/25/19 00:43 Dose: 1 mg Losartan Potassium (Cozaar) 12.5 mg PO DAILY [facility] Last Admin: 01/26/19 08:49 Dose: 12.5 mg Magnesium Oxide (Magnesium Oxide) 400 mg PO DAILY [facility] Last Admin: 01/26/19 08:49 Dose: 400 mg Miscellaneous Information (Remove Patch) 1 ea TRDERM DAILY [facility] Last Admin: 01/26/19 08:51 Dose: Not Given Nicotine (Habitrol) 14 mg TRDERM DAILY [facility] Last Admin: 01/26/19 08:50 Dose: Not Given Ondansetron HCl (Zofran) 4 mg IV Q6H PRN PRN Reason: Nausea/Vomiting Cariprazine Hydrochloride [ Vraylar] 3 Mg - Pt's Own Med 3 each PO 1300 [facility] Last Admin: 01/26/19 12:28 Dose: Not Given Dextroamphetamine/Amphetamine [ Adderall] 30 Mg Pt 's Own Med 0 each PO DAILY [facility] Last Admin: 01/26/19 08:43 Dose: Not Given Quetiapine Fumarate (Seroquel) 200 mg PO BEDTIME [facility] Last Admin: 01/25/19 20:36 Dose: 200 mg Discontinued Medications Clindamycin Phosphate (Cleocin) Confirm Administered Dose 900 mg .ROUTE .STK- MED ONE Stop: 01/24/19 14:11 Last Admin: 01/24/19 14:21 Dose: Not Given Dexamethasone (Dexamethasone) 10 mg IVPUSH ONETIME ONE Stop: 01/24/19 12:23 Last Admin: 01/24/19 13:13 Dose: 10 mg Dexamethasone (Dexamethasone) 10 mg IVPUSH ONETIME ONE Stop: 01/24/19 19:21 Last Admin: 01/24/19 20:00 Dose: 10 mg Hydromorphone HCl (Dilaudid) 1 mg IVPUSH ONETIME ONE Stop: 01/24/19 12:11 Last Admin: 01/24/19 13:08 Dose: 1 mg Dextrose/Sodium Chloride (Dextrose 5%-Normal Saline) 1,000 mls @ 999 mls/hr IV ASDIRECTED [facility] Last Admin: 01/24/19 13:28 Dose: 999 mls/hr Clindamycin Phosphate 900 mg/ (Sodium Chloride) 106 mls @ 200 mls/hr IV ONETIME ONE Stop: 01/24/19 14:30 Last Admin: 01/24/19 14:22 Dose: 200 mls/hr Clindamycin Phosphate 900 mg/ (Sodium Chloride) 106 mls @ 200 mls/hr IV Q8H [facility] Sodium Chloride (Normal Saline) 1,000 mls @ 100 mls/hr IV ASDIRECTED [facility] Stop: 01/25/19 03:16 Last Admin: 01/25/19 01:54 Dose: 100 mls/hr Potassium Chloride 10 meq/ (Premix) 100 mls @ 100 mls/hr IV Q1H [facility] Stop: 01/24/19 21:44 Last Admin: 01/24/19 21:34 Dose: 100 mls/hr Iopamidol (Isovue-300 (61%)) 100 ml IVPUSH ONETIME ONE Stop: 01/24/19 13:00 Last Admin: 01/24/19 12:59 Dose: 100 ml Miscellaneous Information (Remove Patch) 1 ea TRDERM DAILY [facility] Nicotine (Habitrol) 21 mg TRDERM DAILY [facility] Last Admin: 01/24/19 15:42 Dose: Not Given Ondansetron HCl (Zofran) 4 mg IVPUSH ONETIME ONE Stop: 01/24/19 12:11 Last Admin: 01/24/19 13:12 Dose: 4 mg Sodium Chloride (Saline Flush) 10 ml FLUSH ONETIME ONE Stop: 01/24/19 13:00 Last Admin: 01/24/19 12:59 Dose: 10 ml Triamterene/HCTZ (Dyazide 25-37.5 Mg) 1 each PO DAILY [facility] - Exam Quality Assessment: No: Supplemental Oxygen General: Alert, Oriented HEENT: Pupils Equal, Other (Continue trying the right posterior throat without erythema.) Lungs: Clear to Auscultation, Normal Respiratory Effort Cardiovascular: Regular Rate, Regular Rhythm Extremities: Normal Inspection, Normal Range of Motion, Non-Tender, No Pedal Edema Skin: Other (Malar red rash that is asymptomatic.) - Problem List & Annotations (1) Hypokalemia SNOMED Code(s): 74161966 Code(s): E87.6 - HYPOKALEMIA Status: Acute Current Visit: Yes (2) Peritonsillar abscess SNOMED Code(s): 19849900 Code(s): J36 - PERITONSILLAR ABSCESS Status: Acute Current Visit: Yes - Problem List Review Problem List Initiated/Reviewed/Updated: Yes - My Orders Last 24 Hours: My Active Orders 01/26/19 Lunch Regular Diet [DIET] - Plan Plan:: I/P: Acute: Peritonsillar abscess -Reports throat pain getting progressively worse starting 01/21/19 -tolerated soft diet this morning, will advance to regular diet at lunch -Pain more on right side, radiating up into right ear - improved overall but slightly worse since yesterday likely secondary to the steroids wearing off -CT scan obtained in ED on 01/24/19: * 1. Soft tissue swelling within the right parapharyngeal soft tissues as noted above. Probable developing small abscess within the region of the right palatine tonsils measuring about 1.5 cm. * 2. Soft tissue swelling within the uvula -Rapid strep negative - culture pending -Blood cultures pending -WBC decrease to 15, but did not make much change overnight likely secondary to steroid effect -CRP decrease to 8.8 -Rocephin 2gm given in ED - Continue -1L D5NS bolus given in ED -Dr. Mendieta, ENT, contacted in ED: * Agrees no surgical drainage required if abscess is less than 2-2.5 cm * Recommends continuing Rocephin 2 g every 24 hours * Recommends adding clindamycin 600 mg every 6 hours * Recommends dexamethasone for total of 20 mg. -Clindamycin started in ED - continue -Dexamethasone 10mg given in ED - second dose given -NSAIDs for pain patient will need a total of at least 2 days IV antibiotics and then can switch her to by mouth. Hypokalemia - resolved -Potassium 3.8 -Likely 2/2 poor oral intake, unable to take home supplementation 2/2 pain -Supplement Tobacco use disorder -Daily smoker -Nicotine patch ordered -Cessation counseling on discharge Malar steroid rash resolving -Patient has a facial rash that is likely secondary to the steroids. It is better than yesterday afternoon. Chronic: HLD HTN Arthritis OA Depression Anxiety Hypothyroidism Vertigo Plan: Continue on IV antibiotics today and reevaluate tomorrow for home oral medicines. Home medications as ordered Routine AM labs DVT prophylaxis: QUE hose and ambulation Code status: Full code; PCP: Kaur Pena PA-C plan discharge tomorrow
[2019-01-26] MEDS: Gabapentin 600 MG Tab PO SCH (20:01)
[2019-01-26] MEDS: QUEtiapine 100 MG Tab PO SCH (20:01)
[2019-01-27] MEDS: Ibuprofen 600 MG Tab PO PRN (01:30)
[2019-01-27] MEDS: Levothyroxine 75 MCG Tab PO SCH (05:28)
[2019-01-27] MEDS: Clindamycin Phosphate in D5W 900 MG in Premix Bag 1 BAG IV SCH ×4 (05:28→13:34)
[2019-01-27] MEDS: Magnesium Oxide 400 MG Tab PO SCH (08:39)
[2019-01-27] MEDS: Gabapentin 300 MG Cap PO SCH (08:39)
[2019-01-27] MEDS: Losartan 25 MG Tab PO SCH (08:39)
[2019-01-27] MEDS: Aspirin 325 MG Tab.EC PO SCH (08:39)
[2019-01-27] MEDS: amLODIPine 5 MG Tab PO SCH (08:40)
[2019-01-27] MEDS: Nicotine 14 MG/24 Hr Patch TRDERM SCH (08:40)
[2019-01-27] MEDS: AMPHETAMINE PO SCH (08:41)
[2019-01-27] MEDS: DEXTROAMPHETAMINE PO SCH (08:41)
[2019-01-27] MEDS: cefTRIAXone 2 GM in Sodium Chloride 0.9% 100 ML IV SCH (12:33)
[2019-01-27] MEDS: CARIPRAZINE HYDROCHLORIDE 3 MG PO SCH (12:34)
--- NOTE | 2019-01-27 15:03 | PCM.DCSUM1 ---
Discharge Summary - Hospital Course HPI Initial Comments: Eve Uribe is a 63 yo female who presented to our ED on 01/24/19 with throat pain and difficulty swallowing. She reports she first noted soreness in her throat on the evening of January 21 and it has progressively gotten worse. She's not had anything solid E for 2 days. Pain radiates up into her right ear when she swallows and she is also noted to have a hot potato voice. She reports chills but no fever she is aware of. She does note that she had a sleep sitting up in a chair the night prior to arrival due to difficulty with secretions. Denies any cough or sputum production. She believes she still has her tonsils. in the ED temperature 37.1 Celsius. Pulse 83. Respirations 14. Blood pressure 120/53. Pulse ox 96%. Labs are obtained: WBC is 18.37. RBC 4.70. Hemoglobin 13.0. Hematocrit 39.0. She is normocytic. Platelets are good at 291,000. Neutrophils are elevated at 85%. There is no bandemia. Sodium is 137. Potassium 3.1. Chloride 98. Carbon dioxide 29. Anion gap is 13.1. BUN is 10. Creatinine 0.7. EGFR greater than 60. Glucose is 98. Calcium 9.0. Total bilirubin 0.5. AST is 16, ALT 26, alkaline phosphatase 89. CRP is very high at 37.4. Protein 7.2. Albumin 3.4. On physical exam she is noted to have significant throat swelling along with swelling to the right side of her neck in zone 2. She is also noted to have a developing peritonsillar abscess on the right side with anterior shift of the soft palate. She is given a 1 L bolus of D5NS and blood cultures are obtained. CT scan of the neck is obtained and interpreted by Dr. Alston as "1. Soft tissue swelling within the right parapharyngeal soft tissues as noted above. Probable developing small abscess within the region of the right palatine tonsil measuring about 1.5 cm. 2. Soft tissue swelling within the uvula." She is started on 2 g IV Rocephin and given 10 mg IV push dexamethasone. Dr. Mendieta, on-call ENT for [facility] in [place] is contacted and agrees that if the abscess is not larger than 2- 2.5 cm it will not require surgical drainage. he recommends continuing Rocephin 2 g every 24 hours and clindamycin 600 every 6 hours. Rapid strep screen was negative. She carries a history of HLD, HTN, arthritis, osteoarthritis, anxiety, vertigo, depression, hypothyroidism. She is a current daily smoker. She is a full code. Her PCP is Kaur Pena PA-C. She is subsequently admitted to the medical floor for management of her developing peritonsillar abscess. Brief History: patient is admitted for IV antibiotics and did well. She did have group F Streptococcus grow out on throat culture. Patient's white count has normalized and her serum protein decreased to a third of its max and has stabilized. Unfortunately, patient has developed diarrhea. Fortunately her C. difficile was negative. Diagnosis: Stroke: No - Discharge Data Discharge Date: 01/27/19 Discharge Disposition: Home, Self-Care 01 Condition: Good - Discharge Diagnosis/Problem(s) (1) Hypokalemia SNOMED Code(s): 73535949 ICD Code: E87.6 - HYPOKALEMIA Status: Acute Current Visit: Yes (2) Peritonsillar abscess SNOMED Code(s): 88154851 ICD Code: J36 - PERITONSILLAR ABSCESS Status: Acute Current Visit: Yes - Patient Summary/Data Consults: Consultations 01/24/19 15:30 Consult to Spiritual Care [CONS] Routine - Patient Instructions Diet: Usual Diet as Tolerated Activity: As Tolerated Driving: May Drive Today Showering/Bathing: May Shower - Discharge Plan *PRESCRIPTION DRUG MONITORING PROGRAM REVIEWED*: No *COPY OF PRESCRIPTION DRUG MONITORING REPORT IN PATIENT SHAYNE: No Prescriptions/Med Rec: Clindamycin HCl [Cleocin] 450 mg PO Q6H #160 cap Home Medications: Home Meds Aspirin 325 mg PO DAILY 07/14/18 [History] Clobetasol [Clobetasol 0.05%] 1 applic TOP ASDIRECTED 07/14/18 [History] Dextroamphetamine/Amphetamine [Adderall] 30 mg PO DAILY 07/14/18 [History] Furosemide [Lasix] 20 mg PO DAILY 07/14/18 [History] LORazepam 1 mg PO BID PRN 07/14/18 [History] Levothyroxine 75 mcg PO ACBREAKFAST 07/14/18 [History] Losartan Potassium 12.5 mg PO DAILY 07/14/18 [History] QUEtiapine Fumarate [Quetiapine Fumarate] 200 mg PO BEDTIME 07/14/18 [History] Rosuvastatin Calcium 20 mg PO Q48H 07/14/18 [History] Triamterene/Hydrochlorothiazid [Triamterene-HCTZ 37.5-25 MG] 1 tab PO DAILY 06/21 [History] Acetaminophen [Tylenol Arthritis] 1,300 mg PO BID 01/24/19 [History] Cariprazine Hydrochloride [Vraylar] 3 mg PO 1300 01/24/19 [History] Cholecalciferol (Vitamin D3) [Vitamin D3] 5,000 unit PO DAILY 01/24/19 [History] Cyclobenzaprine [Flexeril] 5 mg PO DAILY PRN 01/24/19 [History] Docusate Sodium [Colace] 100 mg PO DAILY PRN 01/24/19 [History] Gabapentin [Neurontin] 300 mg PO DAILY 01/24/19 [History] Gabapentin [Neurontin] 600 mg PO BEDTIME 01/24/19 [History] Gluc HCl/Csa/Job Hy/Hyalur Ac [Glucosamine Chondroitin] 1 cap PO DAILY [History] Magnesium Oxide 400 mg PO DAILY 01/24/19 [History] Potassium 198 mg PO DAILY 01/24/19 [History] amLODIPine [Norvasc] 5 mg PO DAILY 01/24/19 [History] Clindamycin HCl [Cleocin] 450 mg PO Q6H #160 cap 01/27/19 [Rx] Oxygen Therapy Mode: Room Air Patient Handouts: Steps to Quit Smoking Referrals: Kaur Pena PA [Primary Care Provider] - Shaun Mendieta MD [Ordering Only Provider] - 02/03/19 1:40 pm ([address] [place] [address] 3rd floor (located in [facility]) This appt. is Ears, Nose, Throat specality Appointment time is central time.) - Discharge Summary/Plan Comment DC Time >30 min.: Yes Discharge Summary/Plan Comment: patient be discharged on clinic myself 40 mg every 6 hours. She will complete a total course of 14 days of antibiotics. She will follow-up with her primary care provider and ENT in one week. Patient understands that she has any worsening of symptoms she will return immediately to the emergency room. - General Info Date of Service: 01/27/19 Admission Dx/Problem (Free Text: Admission Diagnosis/Problem Admission Diagnosis/Problem Peritonsillar abscess Subjective Update: January 25, 2019 Eve did well overnight. Denies fever or chills. Able to tolerate liquid diet and would like to advance diet. Day 2 of IV antibiotics. Received a second dose of dexamethasone 10 mg last night. January 26, 2019 Patient complains of increasing swelling in the back of her throat and pain. She denies difficulty swallowing. She has been afebrile and has had a decrease in her C-reactive protein. - Review of Systems HEENT: Reports: No Symptoms Pulmonary: Reports: No Symptoms Cardiovascular: Reports: No Symptoms Gastrointestinal: Reports: Diarrhea Genitourinary: Reports: No Symptoms Musculoskeletal: Reports: No Symptoms - Patient Data Vitals - Most Recent: Last Vital Signs Temp 98.1 F 01/27/19 12:32 Pulse 78 01/27/19 12:32 Resp 18 01/27/19 12:32 BP 137/72 01/27/19 12:32 Pulse Ox 99 01/27/19 12:32 Weight - Most Recent: 232 lb 3.2 oz I&O - Last 24 hours: Intake & Output 01/26/19 01/27/19 01/27/19 22:59 06:59 14:59 Intake Total 1480 650 380 Output Total 1100 Balance 380 650 380 Lab Results - Last 24 hrs: Laboratory Results - last 24 hr 01/27/19 01/27/19 01/27/19 Range/Units 04:15 04:15 13:23 WBC 8.04 (3.98-10.04) K/mm3 RBC 4.00 (3.98-5.22) M/mm3 Hgb 11.0 L (11.2-15.7) gm/L Hct 33.7 L (34.1-44.9) % MCV 84.3 (79.4-94.8) fl MCH 27.5 (25.6-32.2) pg MCHC 32.6 (32.2-35.5) g/dl RDW Std Deviation 45.8 (36.4-46.3) fL Plt Count 306 (182-369) K/mm3 MPV 9.6 (9.4-12.3) fl Neut % (Auto) 50.6 (34.0-71.1) % Lymph % (Auto) 34.3 (19.3-51.7) % [place] % (Auto) 11.4 (4.7-12.5) % Eos % (Auto) 2.9 (0.7-5.8) Baso % (Auto) 0.4 (0.1-1.2) % Neut # (Auto) 4.07 (1.56-6.13) K/mm3 Lymph # (Auto) 2.76 (1.18-3.74) K/mm3 [place] # (Auto) 0.92 H (0.24-0.36) K/mm3 Eos # (Auto) 0.23 (0.04-0.36) K/mm3 Baso # (Auto) 0.03 (0.01-0.08) K/mm3 Sodium 142 (136-145) mEq/L Potassium 3.6 (3.5-5.1) mEq/L Chloride 109 H (98-107) mEq/L Carbon Dioxide 24 (21-32) mEq/L Anion Gap 12.6 (5-15) BUN 14 (7-18) mg/dL Creatinine 0.7 (0.55-1.02) mg/dL Est Cr Clr Drug Dosing 83.73 mL/min Estimated GFR (MDRD) > 60 (>60) mL/min BUN/Creatinine Ratio 20.0 H (14-18) Glucose 89 (80-115) mg/dL Calcium 8.5 (8.5-10.1) mg/dL Magnesium 2.2 (1.8-2.4) mg/dl C-Reactive Protein 10.5 H* (<1.0) mg/dL C.difficile [id number] Presumptive negative C. difficile Tox (PCR) Negative [id number] Results - Last 24 hrs: Microbiology 01/24/19 13:15 Aerobic Blood Culture - Preliminary Blood - Venous - Lab Draw NO GROWTH AFTER 3 DAYS Anaerobic Blood Culture - Preliminary NO GROWTH AFTER 3 DAYS 01/24/19 13:00 Aerobic Blood Culture - Preliminary Blood - Venous NO GROWTH AFTER 3 DAYS Anaerobic Blood Culture - Preliminary NO GROWTH AFTER 3 DAYS 01/24/19 15:13 Quick Strep Confirmation Culture - Final Throat Beta Streptococcus Group F Group A Streptococcus Rapid Screen - Final NEGATIVE STREP A SCREEN REFERENCE RANGE: NEGATIVE Med Orders - Current: Current Medications Al Hydroxide/Mg Hydroxide (Mag-Al Plus) 30 ml PO Q4H PRN PRN Reason: Heartburn Last Admin: 01/25/19 22:13 Dose: 30 ml Amlodipine Besylate (Norvasc) 5 mg PO DAILY [facility] Last Admin: 01/27/19 08:40 Dose: 5 mg Aspirin (Ecotrin) 325 mg PO DAILY [facility] Last Admin: 01/27/19 08:39 Dose: 325 mg Docusate Sodium (Colace) 100 mg PO DAILY PRN PRN Reason: Constipation Gabapentin (Neurontin) 300 mg PO DAILY [facility] Last Admin: 01/27/19 08:39 Dose: 300 mg Gabapentin (Neurontin) 600 mg PO BEDTIME [facility] Last Admin: 01/26/19 20:01 Dose: 600 mg Ceftriaxone Sodium 2 gm/ (Sodium Chloride) 100 mls @ 200 mls/hr IV Q24H [facility] Last Admin: 01/27/19 12:33 Dose: 200 mls/hr Clindamycin Phosphate 900 mg/ (Premix) 50 mls @ 100 mls/hr IV Q8H [facility] Last Admin: 01/27/19 13:34 Dose: 100 mls/hr Ibuprofen (Motrin) 600 mg PO Q6H PRN PRN Reason: Pain Last Admin: 01/27/19 01:30 Dose: 600 mg Levothyroxine Sodium (Levothyroxine) 75 mcg PO ACBREAKFAST [facility] Last Admin: 01/27/19 05:28 Dose: 75 mcg Lorazepam (Ativan) 1 mg PO BID PRN PRN Reason: Anxiety Last Admin: 01/25/19 00:43 Dose: 1 mg Losartan Potassium (Cozaar) 12.5 mg PO DAILY [facility] Last Admin: 01/27/19 08:39 Dose: 12.5 mg Magnesium Oxide (Magnesium Oxide) 400 mg PO DAILY [facility] Last Admin: 01/27/19 08:39 Dose: 400 mg Miscellaneous Information (Remove Patch) 1 ea TRDERM DAILY [facility] Last Admin: 01/27/19 08:41 Dose: Not Given Nicotine (Habitrol) 14 mg TRDERM DAILY [facility] Last Admin: 01/27/19 08:40 Dose: Not Given Ondansetron HCl (Zofran) 4 mg IV Q6H PRN PRN Reason: Nausea/Vomiting Cariprazine Hydrochloride [ Vraylar] 3 Mg - Pt's Own Med 3 each PO 1300 [facility] Last Admin: 01/27/19 12:34 Dose: Not Given Dextroamphetamine/Amphetamine [ Adderall] 30 Mg Pt 's Own Med 0 each PO DAILY [facility] Last Admin: 01/27/19 08:41 Dose: Not Given Quetiapine Fumarate (Seroquel) 200 mg PO BEDTIME [facility] Last Admin: 01/26/19 20:01 Dose: 200 mg Discontinued Medications Clindamycin Phosphate (Cleocin) Confirm Administered Dose 900 mg .ROUTE .STK- MED ONE Stop: 01/24/19 14:11 Last Admin: 01/24/19 14:21 Dose: Not Given Dexamethasone (Dexamethasone) 10 mg IVPUSH ONETIME ONE Stop: 01/24/19 12:23 Last Admin: 01/24/19 13:13 Dose: 10 mg Dexamethasone (Dexamethasone) 10 mg IVPUSH ONETIME ONE Stop: 01/24/19 19:21 Last Admin: 01/24/19 20:00 Dose: 10 mg Hydromorphone HCl (Dilaudid) 1 mg IVPUSH ONETIME ONE Stop: 01/24/19 12:11 Last Admin: 01/24/19 13:08 Dose: 1 mg Dextrose/Sodium Chloride (Dextrose 5%-Normal Saline) 1,000 mls @ 999 mls/hr IV ASDIRECTED [facility] Last Admin: 01/24/19 13:28 Dose: 999 mls/hr Clindamycin Phosphate 900 mg/ (Sodium Chloride) 106 mls @ 200 mls/hr IV ONETIME ONE Stop: 01/24/19 14:30 Last Admin: 01/24/19 14:22 Dose: 200 mls/hr Clindamycin Phosphate 900 mg/ (Sodium Chloride) 106 mls @ 200 mls/hr IV Q8H [facility] Sodium Chloride (Normal Saline) 1,000 mls @ 100 mls/hr IV ASDIRECTED [facility] Stop: 01/25/19 03:16 Last Admin: 01/25/19 01:54 Dose: 100 mls/hr Potassium Chloride 10 meq/ (Premix) 100 mls @ 100 mls/hr IV Q1H [facility] Stop: 01/24/19 21:44 Last Admin: 01/24/19 21:34 Dose: 100 mls/hr Iopamidol (Isovue-300 (61%)) 100 ml IVPUSH ONETIME ONE Stop: 01/24/19 13:00 Last Admin: 01/24/19 12:59 Dose: 100 ml Miscellaneous Information (Remove Patch) 1 ea TRDERM DAILY [facility] Nicotine (Habitrol) 21 mg TRDERM DAILY [facility] Last Admin: 01/24/19 15:42 Dose: Not Given Ondansetron HCl (Zofran) 4 mg IVPUSH ONETIME ONE Stop: 01/24/19 12:11 Last Admin: 01/24/19 13:12 Dose: 4 mg Sodium Chloride (Saline Flush) 10 ml FLUSH ONETIME ONE Stop: 01/24/19 13:00 Last Admin: 01/24/19 12:59 Dose: 10 ml Triamterene/HCTZ (Dyazide 25-37.5 Mg) 1 each PO DAILY [facility] - Exam Quality Assessment: Denies: Supplemental Oxygen General: Reports: Alert, Oriented HEENT: Reports: Pupils Equal, Pupils Reactive Neck: Reports: Supple Lungs: Reports: Clear to Auscultation, Normal Respiratory Effort Cardiovascular: Reports: Regular Rate, Regular Rhythm GI/Abdominal Exam: Normal Bowel Sounds, Soft, Non-Tender, No Organomegaly, No Distention Extremities: Normal Inspection, Normal Range of Motion, Non-Tender, No Pedal Edema
== END 2019-01-27 15:25 | disposition home or self-care (01) | DRG 153 ==
LOC: JD.ED 11:21 → JD.MS 14:58
PROVIDERS: ADMIT Pediatrics; ATTEND Pediatrics
DX: J36 Peritonsillar abscess (principal); E78.00 Pure hypercholesterolemia, unspecified; I10 Essential (primary) hypertension; M19.90 Unspecified osteoarthritis, unspecified site; F41.9 Anxiety disorder, unspecified; F32.9 Major depressive disorder, single episode, unspecified; E03.9 Hypothyroidism, unspecified; F17.210 Nicotine dependence, cigarettes, uncomplicated; E78.5 Hyperlipidemia, unspecified; R42 Dizziness and giddiness; E87.6 Hypokalemia; L27.1 Localized skin eruption due to drugs and medicaments taken internally; R13.10 Dysphagia, unspecified; R07.0 Pain in throat; H92.01 Otalgia, right ear; R50.9 Fever, unspecified; R53.81 Other malaise; R11.2 Nausea with vomiting, unspecified; R53.83 Other fatigue; T38.0X5A Adverse effect of glucocorticoids and synthetic analogues, initial encounter; R19.7 Diarrhea, unspecified; Z88.6 Allergy status to analgesic agent; Z79.82 Long term (current) use of aspirin; Z79.890 Hormone replacement therapy; Z79.899 Other long term (current) drug therapy
CPT/HCPCS: 36415; 70491; 80053; 85007; 85027; 86140; 87040 ×2; 96365; 96367; 96375; 99284; J0696; J1100; J1170; J2405; J3490; J7030 ×2; J7042; Q9967; 80048; 83735; 85025; 87081; 87430; 87493; 99285; A9270-GY; J3480; J7040

== ENCOUNTER → 2019-05-27 | Day surgery (SDC) | payer MEDICARE, OTHER ==
[~2019-05-27] MED LIST: Albuterol 0.083% 2.5 MG/3 ML Neb Soln NEB PRN; Lactated Ringers 1,000 ML IV SCH; Lidocaine 1% 0 ML ONE; Lidocaine 1% with EPINEPHrine 1:100,000 20 ML MDV ONE; Lidocaine 2% with EPINEPHrine 1:200,000 20 ML SDV INJECT SCH; Propofol 200 MG/20 ML SDV ONE; Sodium Chloride 0.9% 10 ML Syringe FLUSH PRN
--- NOTE | 2019-05-27 10:13 | PCM.PREANE ---
Preanesthetic Assessment - Procedure Proposed Procedure: bilat blephroplasty - Anesthesia/Transfusion/Family Hx Anesthesia History: Prior Anesthesia Without Reaction Family History of Anesthesia Reaction: No Transfusion History: No Prior Transfusion(s) - Review of Systems General: No Symptoms Pulmonary: Cough (occasionally-no cold) Cardiovascular: No Symptoms Gastrointestinal: No Symptoms Neurological: No Symptoms Other: Reports: Thyroid Problems, Depression, Anxiety - Physical Assessment NPO Status Date: 05/26/19 NPO Status Time: 21:00 Height: 5 ft 9 in Weight: 107.048 kg ASA Class: 2 Mental Status: Alert & Oriented x3 Airway Class: Mallampati = 1 Dentition: Reports: Normal Dentition Thyro-Mental Finger Breadths: 3 Mouth Opening Finger Breadths: 3 ROM/Head Extension: Full Lungs: Clear to Auscultation, Normal Respiratory Effort Cardiovascular: Regular Rate, Regular Rhythm - Lab Values: labs pending - Allergies Allergies/Adverse Reactions: Allergies Allergy/AdvReac Type Severity Reaction Status Date / Time lidocaine Allergy Blisters Verified 05/26/19 11:43 codeine AdvReac Hallucinati Verified 05/26/19 11:43 ons - Blood Blood Available: No - Acknowledgements Anesthesia Type Planned: MAC Pt an Appropriate Candidate for the Planned Anesthesia: Yes Alternatives and Risks of Anesthesia Discussed w Pt/Guardian: Yes Pt/Guardian Understands and Agrees with Anesthesia Plan: Yes PreAnesthesia Questionnaire HEENT History: Reports: Impaired Vision Cardiovascular History: Reports: High Cholesterol, Hypertension Respiratory History: Reports: None Gastrointestinal History: Reports: GERD Genitourinary History: Reports: Urinary Incontinence 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 CANS 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: , Other (See Below) Other OB/BYN History: hysterectomy Musculoskeletal History: Reports: Arthritis, Osteoarthritis Neurological History: Reports: Vertigo Psychiatric History: Reports: Anxiety, Depression Endocrine/Metabolic History: Reports: Hypothyroidism, Obesity/BMI 30+ Oncologic (Cancer) History: Reports: None Dermatologic History: Reports: Eczema - Past Surgical History HEENT Surgical History: Reports: Cataract Surgery, Other (See Below) (lump neck removed) Neurological Surgical History: Reports: C-Spine, Lumbar Spine Musculoskeletal Surgical History: Reports: Other (See Below) Other Musculoskeletal Surgeries/Procedures:: Had extra rib removed - SUBSTANCE USE Smoking Status *Q: Current Every Day Smoker Tobacco Use Within Last Twelve Months: Cigarettes Second Hand Smoke Exposure: Yes Days Per Week of Alcohol Use: 1 Number of Drinks Per Day: 1 Total Drinks Per Week: 1 Recreational Drug Use History: No - HOME MEDS Home Medications: Home Meds Aspirin 325 mg PO DAILY 07/14/18 [History] Clobetasol [Clobetasol 0.05%] 1 applic TOP ASDIRECTED 07/14/18 [History] Dextroamphetamine/Amphetamine [Adderall] 30 mg PO DAILY 07/14/18 [History] Furosemide [Lasix] 20 mg PO DAILY 07/14/18 [History] LORazepam 1 mg PO BID PRN 07/14/18 [History] Levothyroxine 75 mcg PO ACBREAKFAST 07/14/18 [History] Losartan Potassium 12.5 mg PO DAILY 07/14/18 [History] QUEtiapine Fumarate [Quetiapine Fumarate] 200 mg PO BEDTIME 07/14/18 [History] Rosuvastatin Calcium 20 mg PO Q48H 07/14/18 [History] Triamterene/Hydrochlorothiazid [Triamterene-HCTZ 37.5-25 MG] 1 tab PO DAILY 06/21 [History] Acetaminophen [Tylenol Arthritis] 1,300 mg PO BID 01/24/19 [History] Cariprazine Hydrochloride [Vraylar] 3 mg PO 1300 01/24/19 [History] Cholecalciferol (Vitamin D3) [Vitamin D3] 5,000 unit PO DAILY 01/24/19 [History] Cyclobenzaprine [Flexeril] 5 mg PO DAILY PRN 01/24/19 [History] Docusate Sodium [Colace] 100 mg PO DAILY PRN 01/24/19 [History] Gabapentin [Neurontin] 300 mg PO DAILY 01/24/19 [History] Gabapentin [Neurontin] 600 mg PO BEDTIME 01/24/19 [History] Gluc HCl/Csa/Job Hy/Hyalur Ac [Glucosamine Chondroitin] 1 cap PO DAILY [History] Magnesium Oxide 400 mg PO DAILY 01/24/19 [History] Potassium 198 mg PO DAILY 01/24/19 [History] amLODIPine [Norvasc] 5 mg PO DAILY 01/24/19 [History] Clindamycin HCl [Cleocin] 450 mg PO Q6H #160 cap 01/27/19 [Rx] - CURRENT (IN HOUSE) MEDS Current Meds: Current Medications Albuterol (Proventil Neb Soln) 2.5 mg NEB ONETIME PRN PRN Reason: Shortness of Breath Stop: 05/27/19 18:00 Lactated Ringer's (Ringers, Lactated) 1,000 mls @ 125 mls/hr IV ASDIRECTED JAVID Stop: 05/27/19 23:00 Lidocaine/Epinephrine (Xylocaine-Mpf 2%-Epi 1:200,000) 5 ml INJECT ASDIRECTED JAVID Sodium Chloride (Saline Flush) 10 ml FLUSH ASDIRECTED PRN PRN Reason: Keep Vein Open Stop: 05/27/19 18:00 Tetracaine HCl (Tetracaine 0.5% Steri-Unit Roseanne) 0 ml EYEBOTH ASDIRECTED JAVID Stop: 05/27/19 18:00 Discontinued Medications Albuterol (Proventil Neb Soln) 2.5 mg NEB ONETIME PRN PRN Reason: Shortness of Breath
[2019-05-27] MEDS: Tetracaine HCl/PF 0.5% 4 ML Bottle EYEBOTH SCH ×2 (11:12→11:18)
== END ==
LOC: JD.SDS 09:20
PROVIDERS: ATTEND Ophthalmology
DX: H02.831 Dermatochalasis of right upper eyelid (principal); H02.834 Dermatochalasis of left upper eyelid; H16.223 Keratoconjunctivitis sicca, not specified as Sjogren's, bilateral; H16.103 Unspecified superficial keratitis, bilateral; I10 Essential (primary) hypertension; E78.00 Pure hypercholesterolemia, unspecified; E07.9 Disorder of thyroid, unspecified; F41.9 Anxiety disorder, unspecified; F32.9 Major depressive disorder, single episode, unspecified; F17.200 Nicotine dependence, unspecified, uncomplicated; Z98.42 Cataract extraction status, left eye; Z98.41 Cataract extraction status, right eye; Z96.1 Presence of intraocular lens; Z53.09 Procedure and treatment not carried out because of other contraindication; Z79.899 Other long term (current) drug therapy
CPT/HCPCS: 36415; 80048; J7120; J2001; J2704

== ENCOUNTER 2021-01-10 07:14 | Day surgery (SDC) | payer MEDICARE, OTHER ==
[~2021-01-10 07:14] MED LIST changes: -Albuterol 0.083% 2.5 MG/3 ML Neb Soln NEB PRN; -Lidocaine 1% 0 ML ONE; -Lidocaine 1% with EPINEPHrine 1:100,000 20 ML MDV ONE; +Lidocaine 1%/Sod Bicarbonate in NS 8.4% 1 ML Syringe IDERM PRN; -Lidocaine 2% with EPINEPHrine 1:200,000 20 ML SDV INJECT SCH; -Propofol 200 MG/20 ML SDV ONE
--- NOTE | 2021-01-10 07:35 | PCM.PREANE ---
Preanesthetic Assessment - Procedure Proposed Procedure: Right total knee arthroplasty - Anesthesia/Transfusion/Family Hx Anesthesia History: Prior Anesthesia Without Reaction Family History of Anesthesia Reaction: No Transfusion History: No Prior Transfusion(s) Intubation History: Unknown - Review of Systems General: No Symptoms Pulmonary: No Symptoms Cardiovascular: No Symptoms Gastrointestinal: No Symptoms Neurological: No Symptoms Other: Reports: None - Physical Assessment NPO Status Date: 01/09/21 NPO Status Time: 16:00 Vital Signs: 143/66 HR 78 RR 16 97.5 95% RA Height: 1.75 m Weight: 106.5 kg ASA Class: 3 Mental Status: Alert & Oriented x3 Airway Class: Mallampati = 2 Dentition: Reports: Missing Tooth/Teeth Thyro-Mental Finger Breadths: 2 Mouth Opening Finger Breadths: 2 ROM/Head Extension: Limited/Partial Lungs: Clear to Auscultation, Normal Respiratory Effort Cardiovascular: Regular Rate, Regular Rhythm - Lab Values: Labs reviewed and okay to proceed - Imaging/EKG Impressions: EKG NSR HR 77 - Allergies Allergies/Adverse Reactions: Allergies Allergy/AdvReac Type Severity Reaction Status Date / Time codeine AdvReac Hallucinati Verified 01/09/21 10:17 ons - Blood Blood Available: No Product(s) Available: None - Anesthesia Plan Pre-Op Medication Ordered: None - Acknowledgements Anesthesia Type Planned: Spinal Pt an Appropriate Candidate for the Planned Anesthesia: Yes Alternatives and Risks of Anesthesia Discussed w Pt/Guardian: Yes Pt/Guardian Understands and Agrees with Anesthesia Plan: Yes PreAnesthesia Questionnaire HEENT History: Reports: Allergic Rhinitis, Impaired Vision, Sinusitis, Other (See Below) Other HEENT History: ear itching, middle ear effusion, vision changes Cardiovascular History: Reports: High Cholesterol, Hypertension, [place] Other Cardiovascular History: [place] 20 years ago, had stress test last year with negative findings Respiratory History: Reports: None Gastrointestinal History: Reports: Chronic Constipation, GERD Genitourinary History: Reports: Urinary Incontinence, Other (See Below) Other Genitourinary History: frequency [employer]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: , Other (See Below) Other OB/BYN History: hysterectomy Musculoskeletal History: Reports: Arthritis, Back Pain, Chronic, Osteoarthritis, Other (See Below) Other Musculoskeletal History: plantar fasciitis, foot pain, scoliosis (previous chest xray with no acute findings) Neurological History: Reports: Headaches, Chronic, Migraines, Vertigo Psychiatric History: Reports: ADHD, Anxiety, Depression Endocrine/Metabolic History: Reports: Hypothyroidism, Obesity/BMI 30+ Hematologic History: Reports: None Immunologic History: Reports: None Oncologic (Cancer) History: Reports: None Dermatologic History: Reports: Eczema, Other (See Below) Other Dermatologic History: hair loss - Infectious Disease History Infectious Disease History: Reports: None - Past Surgical History Head Surgeries/Procedures: Reports: None HEENT Surgical History: Reports: Cataract Surgery, Other (See Below) Cardiovascular Surgical History: Reports: None Respiratory Surgical History: Reports: None GI Surgical History: Reports: Colonoscopy Female Surgical History: Reports: Hysterectomy Endocrine Surgical History: Reports: None Neurological Surgical History: Reports: C-Spine, Lumbar Spine (Occasional low back pain since surgery), Other (See Below) Other Neurological Surgeries/Procedures: Sciatic surgery - no pain with sciatic since surgery Musculoskeletal Surgical History: Reports: Other (See Below) Other Musculoskeletal Surgeries/Procedures:: Had extra rib removed, ankle surgery Oncologic Surgical History: Reports: None Dermatological Surgical History: Reports: None - SUBSTANCE USE Tobacco Use Status *Q: Former Tobacco User Tobacco Use Within Last Twelve Months: No Second Hand Smoke Exposure: No Days Per Week of Alcohol Use: 2 Number of Drinks Per Day: 2 Total Drinks Per Week: 4 Recreational Drug Use History: No - HOME MEDS Home Medications: Home Meds Furosemide [Lasix] 20 mg PO DAILY PRN 07/14/18 [History] LORazepam 1 mg PO TID PRN 07/14/18 [History] Levothyroxine 75 mcg PO ACBREAKFAST 07/14/18 [History] Triamterene/Hydrochlorothiazid [Triamterene-HCTZ 37.5-25 MG] 1 tab PO DAILY 07/14/18 [History] Acetaminophen [Tylenol Arthritis] 650 mg PO TID PRN 01/24/19 [History] Cholecalciferol (Vitamin D3) [Vitamin D3] 5,000 unit PO DAILY 01/24/19 [History] Cyclobenzaprine [Flexeril] 5 - 10 mg PO TID PRN 01/24/19 [History] Gabapentin [Neurontin] 900 mg PO BEDTIME 01/24/19 [History] Magnesium Oxide 400 mg PO DAILY 01/24/19 [History] Ascorbic Acid [Vitamin C] 1,000 mg PO DAILY 01/09/21 [History] Glucosamine/D3/Boswellia Nickie [Osteo Bi-Flex Caplet] 1 tab PO DAILY 01/09/21 [History] Losartan [Cozaar] 50 mg PO DAILY 01/09/21 [History] Mv-Min/Vit C/Glut/Lysine/Hb124 [Airborne Effervescent Tablet] 1 tab PO DAILY 01/09/21 [History] Nystatin [Nystatin Oral Syringe] 1 dose PO QID 01/09/21 [History] Potassium Gluconate [Potassium] 99 mg PO DAILY 01/09/21 [History] QUEtiapine [SEROquel] 50 - 100 mg PO BEDTIME 01/09/21 [History] Rivaroxaban [Xarelto] 10 mg PO DAILY #40 tab 01/09/21 [Rx] Tamarind Seed/Turmeric Extract [Turmeric-Tamarind 250 mg Tab] 250 mg PO DAILY 01/09/21 [History] oxyCODONE 5 - 10 mg PO Q4H PRN #40 tab 01/09/21 [Rx] - CURRENT (IN HOUSE) MEDS Current Meds: Current Medications Morphine Sulfate 8 mg/Epinephrine HCl 0.3 mg/Cefuroxime Sodium 750 mg/Ketorolac Tromethamine 30 mg/Sodium Chloride 7.9 ml 0 mg .XX ASDIRECTED PRN PRN Reason: Pain Stop: 01/10/21 13:00 Lactated Ringer's (Ringers, Lactated) 1,000 mls @ 125 mls/hr IV ASDIRECTED JAVID Stop: 01/10/21 23:00 Lidocaine/Sodium Bicarbonate (Lidocaine 1%/Sod Bicarbonate In Ns 8.4% 1 Ml Syringe) 0.25 ml IDERM ONETIME PRN PRN Reason: Prior to IV Start Stop: 01/10/21 18:00 Sodium Chloride (Sodium Chloride 0.9% 10 Ml Syringe) 10 ml FLUSH ASDIRECTED PRN PRN Reason: Keep Vein Open Stop: 01/10/21 18:00
[2021-01-10] MEDS ORDERED: Ropivacaine 0.5% 5 MG/ML 30 ML SDV ONE (07:39)
[2021-01-10] MEDS ORDERED: EPINEPHrine 1 MG/ML SDV ONE (07:39)
[2021-01-10] MEDS ORDERED: Lidocaine 1% PF 2 ML SDV ONE (09:00)
[2021-01-10] MEDS ORDERED: ceFAZolin 1 GM Vial ONE (09:22)
[2021-01-10] MEDS ORDERED: Ketorolac 30 MG/ML SDV ONE (09:22)
[2021-01-10] MEDS ORDERED: Lactated Ringers 1,000 ML ONE (09:22)
[2021-01-10] MEDS ORDERED: Ondansetron 4 MG/2 ML SDV ONE (09:22)
[2021-01-10] MEDS ORDERED: Dexamethasone 4 MG/ML 5 ML MDV ONE (09:23)
[2021-01-10] MEDS ORDERED: Propofol 200 MG/20 ML SDV ONE ×2 (09:23→10:29)
[2021-01-10] MEDS ORDERED: Midazolam 1 MG/ML 2 ML SDV ONE ×2 (09:23→09:26)
[2021-01-10] MEDS ORDERED: Ketamine 500 mg/10 ML MDV ONE (09:25)
[2021-01-10] MEDS: Morphine 8 MG, EPINEPHrine 0.3 MG, Cefuroxime 750 MG, Ketorolac 30 MG, Sodium Chloride ... PRN ×10 (10:15→10:52)
[2021-01-10] MEDS: Vancomycin 1 GM SDV ONE ×2 (10:16→10:59)
[2021-01-10] MEDS ORDERED: ePHEDrine 50 MG/ML SDV ONE (10:32)
[2021-01-10] MEDS ORDERED: Ondansetron 4 MG/2 ML SDV IVPUSH PRN (10:40)
[2021-01-10] MEDS ORDERED: fentaNYL 100 MCG/2 ML SDV IVPUSH PRN (10:40)
[2021-01-10] MEDS ORDERED: HYDROmorphone 0.5 MG/0.5 ML Syringe IVPUSH PRN (10:40)
[2021-01-10] MEDS ORDERED: fentaNYL 100 MCG/2 ML SDV ONE (11:20)
--- NOTE | 2021-01-10 11:28 | PCM.POSTAN ---
POST ANESTHESIA ASSESSMENT - MENTAL STATUS Mental Status: Alert, Oriented - VITAL SIGNS Vital Signs: Last Vital Signs Temp 36.4 C 01/10/21 07:10 Pulse 78 01/10/21 07:10 Resp 16 01/10/21 07:10 BP 143/66 H 01/10/21 07:10 Pulse Ox 95 01/10/21 07:10 1122 104/55 82 11 97F 92% - RESPIRATORY Respiratory Status: Respiratory Rate WNL, Airway Patent, O2 Saturation Stable, Supplemental Oxygen - CARDIOVASCULAR CV Status: Pulse Rate WNL, Blood Pressure Stable - GASTROINTESTINAL GI Status: No Symptoms - PAIN Pain Score: 0 - POST OP HYDRATION Hydration Status: Adequate & Stable
--- NOTE | 2021-01-10 11:47 | PCM.SN.2 ---
- Free Text/Narrative Note: Right selective femoral nerve block at the adductor canal for post-procedure pain control under US guidance requested by Dr. Mix. Date: 01/07/2021 Time Out: 1131 Start: 1134 End: 1138 Chart reviewed. Consent signed. Questions answered. Appropriate monitors applied. Time out performed. Right mid-shaft femur identified with ultrasound, scanning medially of femur, the femoral artery in the adductor canal visualized, and the femoral nerve located laterally to the artery. The skin was prepped lateral to the ultrasound probe with chlorahexadine times two. The 21ga 4 insulated block needle was inserted under direct ultrasound guidance into the adductor canal. 25mL of 0.5% ropivacaine with 1:200,000 epinephrine was injected circumferentially around the nerve with intermittent negative aspiration noted. Patient tolerated the procedure well. Sterile technique noted along with sterile gloves, mask, and sterile probe cover. See picture on progress note and vital signs on nurses notes. Block completed in PACU. Agustina Jimenez CRNA
[2021-01-10] MEDS ORDERED: oxyCODONE 5 MG Tab PO PRN (12:17)
--- NOTE | 2021-01-10 14:02 | CR ---
Right knee: AP and crosstable lateral views of the right knee were obtained. Comparison: Prior right knee CT study of 12/27/20. Knee prosthesis is seen. Components are aligned. Patellar prosthesis is also noted. Soft tissue air is seen. Underlying bony structures show no other acute abnormality. Impression: 1. Satisfactory postop radiographic appearance of recently placed right knee prostheses. Diagnostic code #2
--- NOTE | 2021-01-10 14:27 | PCM48HPAN ---
Post Anesthesia Note - EVALUATION WITHIN 48HRS OF ANESTHETIC Vital Signs in Normal Range: Yes Patient Participated in Evaluation: Yes Respiratory Function Stable: Yes Airway Patent: Yes Cardiovascular Function Stable: Yes Hydration Status Stable: Yes Pain Control Satisfactory: Yes Nausea and Vomiting Control Satisfactory: Yes Mental Status Recovered: Yes Vital Signs: Last Vital Signs Temp 36.4 C 01/10/21 13:30 Pulse 91 01/10/21 13:30 Resp 12 01/10/21 13:30 BP 132/73 01/10/21 13:30 Pulse Ox 98 01/10/21 13:30
--- NOTE | 2021-01-29 07:28 | PCM.OPNOTE ---
- General Post-Op/Procedure Note Date of Surgery/Procedure: 01/10/21 Operative Procedure(s): right total knee arthroplasty with kareen iris cary Pre Op Diagnosis: right knee osteoarthrosis Post-Op Diagnosis: Same Anesthesia Technique: Local, MAC, Spinal Primary Surgeon: Ketan Mix Anesthesia Provider: Rebeka Jimenez Business Support Manager: Kay Mantilla Business Support Manager: Missy Jimenez EBL in mLs: 50 Complications: None Condition: Good Free Text/Narrative:: 4 femur 3 tibia 10mm 29x9
--- NOTE | 2021-01-29 08:27 | OR ---
DATE OF OPERATION: 01/10/2021 SURGEON: Ketan Mix MD OPERATION PERFORMED: Right total knee arthroplasty with [employer] robotics. PREOPERATIVE DIAGNOSIS: Right knee osteoarthrosis. POSTOPERATIVE DIAGNOSIS: Right knee osteoarthrosis. ANESTHESIA: Local MAC with spinal. ANESTHESIA PROVIDER: Jaqui Leon ASSISTANTS: Kay Mantilla PA-C and Missy Jimenez LPN ESTIMATED BLOOD LOSS: 50 mL. COMPLICATIONS: None. CONDITION: Stable. IMPLANTS: 1. Bement size 4 press-fit CR femur. 2. Jennifer size 3 press-fit tibial baseplate. 3. Jennifer size 3, 10 mm CS polyethylene insert. 4. Bement size 29 x 9 mm patella. DESCRIPTION OF PROCEDURE: The patient was identified in the preoperative holding area. Proper site was marked and identified by the surgeon. The patient taken back to the operating theater, where after adequate anesthesia the patient had a nonsterile tourniquet applied to right lower extremity. Right lower extremity was then sterilely prepped and draped in the usual sterile fashion. OR time-out was performed. The patient received 2 g IV Ancef. Right lower extremity had a leg campoverde applied and then was exsanguinated. Tourniquet was insufflated to 250 mmHg. Standard anterior incision was made. Medial parapatellar arthrotomy was created. Deep fibers of the MCL were raised and anterior fat pad was resected. At this time, attention was turned to the patella. Patella measured 21, resected to a 13 for a 29 x 9 mm patella. Drill holes were then drilled and found to be adequate bone. At this time, two 4-0 Schanz pins were placed intra- incisionally on the femur and 2 more were placed 3 fingerbreadths below the tibial tubercle for the [employer] robotic arrays. The arrays were then placed and checkpoints were then placed for the Jennifer Kendall robotic plan. Hip center rotation was obtained. Medial and lateral malleoli were marked. 40 points were then obtained off the femur and the tibia for the Jennifer Kendall robotic plan. The patient's knee was brought into full extension. Varus and valgus stresses were applied as well as 90 degrees of flexion. Concentric flexion and extension gaps were then obtained for this patient. Bement Kendall robotic arm was brought in. The tibial cut, anterior femoral cut, anterior chamfer cut, and posterior femoral cut were completed. At this time, saw blade was then switched, and the distal femoral cut as well as posterior chamfer cut were completed. Finally, she was found to have adequate bone stock. At this time, medial and lateral menisci were resected as well as any posterior osteophytes and bony pieces. Size 3 trial baseplate was then placed. A size 4 trial femur was then placed. A 9 mm was trialed. The patient had a minor amount of hyperextension, so we did put a 10. The patient had full 0 degrees of extension with no varus-valgus instability. Full range of motion with no signs of liftoff. At this time, the femoral drill holes were drilled. Tibia was stamped and drilled in the proper rotation. All trial implants were removed. The size 3 tibia was then impacted into place. A size 4 press-fit femur was impacted into place. 10 mm CS polyethylene insert was impacted into place. The patient's knee was brought into full extension. The 29 x 9 mm press-fit patella was press-fit into place. Tourniquet was deflated. Bleeders were cauterized. 1 L pulse lavage irrigation with Ancef was irrigated through the knee along with 400 mL Irrisept irrigation. Periarticular injection was completed. Topical tranexamic acid and vancomycin powder were applied. A #2 barbed suture was used for closure of the medial parapatellar arthrotomy. 2-0 Vicryl as well as Stratafix were used for subcutaneous closure, and Prineo was used for skin closure. The patient tolerated the procedure well and was sent to PACU in stable condition. All [employer] robotic pins and arrays were removed as well as checkpoints. MMODAL /[id number]
== END 2021-01-10 15:21 | disposition home or self-care (01) ==
LOC: JD.SDS 07:14
PROVIDERS: ATTEND Orthopaedic Surgery
DX: M17.11 Unilateral primary osteoarthritis, right knee (principal); G89.29 Other chronic pain; E03.9 Hypothyroidism, unspecified; E78.5 Hyperlipidemia, unspecified; G43.909 Migraine, unspecified, not intractable, without status migrainosus; I25.2 Old myocardial infarction; G89.18 Other acute postprocedural pain; Z88.5 Allergy status to narcotic agent; Z79.899 Other long term (current) drug therapy; Z79.82 Long term (current) use of aspirin; Z79.890 Hormone replacement therapy; Z98.890 Other specified postprocedural states; Z87.891 Personal history of nicotine dependence
CPT/HCPCS: 27447; 73560; 97116; 97161; 97165; 97535; A9270; C1713; C1776; J0171; J0690; J0697; J1100; J1885; J2250; J2270; J2405; J2704; J2795; J3010; J3370; J7120; 01402; 64450; 76942

== ENCOUNTER 2021-05-21 05:57 | Day surgery (SDC) | payer MEDICARE, OTHER ==
[~2021-05-21 05:57] MED LIST changes: -Lactated Ringers 1,000 ML IV SCH
[2021-05-21] MEDS ORDERED: Acetaminophen 325 MG Tab PO SCH (06:00)
[2021-05-21] MEDS ORDERED: oxyCODONE ER 10 MG TAB.ER PO SCH (06:00)
[2021-05-21] MEDS ORDERED: Pregabalin 25 MG Cap PO SCH (06:00)
[2021-05-21] MEDS: Lactated Ringers 1,000 ML IV SCH ×2 (06:20→13:39)
[2021-05-21] MEDS ORDERED: Scopolamine 1.5 MG Transdermal Patch TOP ONE (06:30)
--- NOTE | 2021-05-21 06:32 | PCM.PREANE ---
Preanesthetic Assessment - Procedure Proposed Procedure: Left total knee arthroplasty - Anesthesia/Transfusion/Family Hx Anesthesia History: Prior Anesthesia Reaction (nausea) Family History of Anesthesia Reaction: No Transfusion History: No Prior Transfusion(s) Intubation History: Unknown - Review of Systems General: No Symptoms Pulmonary: No Symptoms Cardiovascular: Dyspnea on Exertion Gastrointestinal: No Symptoms Neurological: Numbness ("right leg where they did surgery laset time") Other: Reports: Easy Bruising, Thyroid Problems (hypothyroid) - Physical Assessment NPO Status Date: 05/20/21 NPO Status Time: 00:00 Height: 1.75 m Weight: 103.4 kg ASA Class: 3 Mental Status: Alert & Oriented x3 Airway Class: Mallampati = 2 Dentition: Reports: [place](s) Thyro-Mental Finger Breadths: 2 Mouth Opening Finger Breadths: 2 ROM/Head Extension: Full Lungs: Clear to Auscultation, Normal Respiratory Effort Cardiovascular: Regular Rate, Regular Rhythm - Allergies Allergies/Adverse Reactions: Allergies Allergy/AdvReac Type Severity Reaction Status Date / Time codeine AdvReac Hallucinati Verified 05/18/21 12:21 ons - Blood Blood Available: No Product(s) Available: None - Anesthesia Plan Pre-Op Medication Ordered: None - Acknowledgements Anesthesia Type Planned: Spinal, Regional Block (adductor canal block for post- op pain control) Pt an Appropriate Candidate for the Planned Anesthesia: Yes Alternatives and Risks of Anesthesia Discussed w Pt/Guardian: Yes Pt/Guardian Understands and Agrees with Anesthesia Plan: Yes PreAnesthesia Questionnaire HEENT History: Reports: Allergic Rhinitis, Impaired Vision, Sinusitis, Other (See Below) Other HEENT History: ear itching, middle ear effusion, vision changes, dry eyes, oral thrush Cardiovascular History: Reports: Blood Clots/VTE/DVT, High Cholesterol, Hypertension, CA Other Cardiovascular History: CA 20 years ago, had stress test last year with negative findings Respiratory History: Reports: Other (See Below) Other Respiratory History: upper respiratory infection Gastrointestinal History: Reports: Chronic Constipation, GERD Genitourinary History: Reports: Urinary Incontinence, Other (See Below) Other Genitourinary History: frequency 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: , Other (See Below) Other OB/BYN History: hysterectomy Musculoskeletal History: Reports: Arthritis, Back Pain, Chronic, Osteoarthritis, Other (See Below) Other Musculoskeletal History: plantar fasciitis, foot pain, scoliosis (previous chest xray with no acute findings) Neurological History: Reports: Headaches, Chronic, Migraines, Vertigo Psychiatric History: Reports: ADHD, Anxiety, Depression Endocrine/Metabolic History: Reports: Hypothyroidism, Obesity/BMI 30+ Hematologic History: Reports: None Immunologic History: Reports: None Oncologic (Cancer) History: Reports: None Dermatologic History: Reports: Eczema, Other (See Below) Other Dermatologic History: hair loss - Infectious Disease History Infectious Disease History: Reports: None - Past Surgical History Head Surgeries/Procedures: Reports: None HEENT Surgical History: Reports: Cataract Surgery, Other (See Below) Cardiovascular Surgical History: Reports: None Respiratory Surgical History: Reports: None GI Surgical History: Reports: Colonoscopy, EGD Female Surgical History: Reports: Hysterectomy Male Surgical History: Reports: None Endocrine Surgical History: Reports: None Neurological Surgical History: Reports: C-Spine, Lumbar Spine, Other (See Below) Other Neurological Surgeries/Procedures: Sciatic surgery - no pain with sciatic since surgery Musculoskeletal Surgical History: Reports: Knee Replacement, Other (See Below) Other Musculoskeletal Surgeries/Procedures:: Had extra rib removed, ankle surgery Oncologic Surgical History: Reports: None Dermatological Surgical History: Reports: None - SUBSTANCE USE Tobacco Use Status *Q: Former Tobacco User Tobacco Use Within Last Twelve Months: Cigarettes Second Hand Smoke Exposure: Yes Days Per Week of Alcohol Use: 2 Number of Drinks Per Day: 1 Total Drinks Per Week: 2 Recreational Drug Use History: No - HOME MEDS Home Medications: Home Meds LORazepam 1 mg PO TID PRN 07/14/18 [History] Levothyroxine 75 mcg PO ACBREAKFAST 07/14/18 [History] Acetaminophen [Tylenol Arthritis] 650 mg PO TID PRN 01/24/19 [History] Cholecalciferol (Vitamin D3) [Vitamin D3] 5,000 unit PO DAILY 01/24/19 [History] Gabapentin [Neurontin] 900 mg PO BEDTIME 01/24/19 [History] Magnesium Oxide 400 mg PO DAILY 01/24/19 [History] Ascorbic Acid [Vitamin C] 1,000 mg PO DAILY 01/09/21 [History] Glucosamine/D3/Boswellia Nickie [Osteo Bi-Flex Caplet] 1 tab PO DAILY 01/09/21 [History] Mv-Min/Vit C/Glut/Lysine/Hb124 [Airborne Effervescent Tablet] 1 tab PO DAILY 01/09/21 [History] Nystatin [Nystatin Oral Syringe] 1 dose PO QID 01/09/21 [History] Potassium Gluconate [Potassium] 99 mg PO DAILY 01/09/21 [History] QUEtiapine [SEROquel] 100 mg PO BEDTIME 01/09/21 [History] Tamarind Seed/Turmeric Extract [Turmeric-Tamarind 250 mg Tab] 250 mg PO DAILY 01/09/21 [History] Carboxymethylcellulose Sodium [Refresh Tears 0.5%] 1 drop EYEBOTH DAILY PRN 05/18/21 [History] atorvaSTATin Calcium [Lipitor] 40 mg PO DAILY 05/18/21 [History] - CURRENT (IN HOUSE) MEDS Current Meds: Current Medications Acetaminophen (Acetaminophen 325 Mg Tab) 975 mg PO ONETIME JAVID Stop: 05/21/21 23:00 Morphine Sulfate 8 mg/Epinephrine HCl 0.3 mg/Cefuroxime Sodium 750 mg/Ketorolac Tromethamine 30 mg/Sodium Chloride 7.9 ml 0 mg .XX ASDIRECTED PRN PRN Reason: Pain Stop: 05/21/21 18:00 Lactated Ringer's (Ringers, Lactated) 1,000 mls @ 125 mls/hr IV ASDIRECTED JAVID Lidocaine/Sodium Bicarbonate (Lidocaine 1%/Sod Bicarbonate In Ns 8.4% 1 Ml Syringe) 0.25 ml IDERM ONETIME PRN PRN Reason: Prior to IV Start Oxycodone HCl (Oxycodone Er 10 Mg Tab.Er) 10 mg PO ONETIME JAVID Stop: 05/21/21 16:00 Pregabalin (Pregabalin 25 Mg Cap) 50 mg PO ONETIME JAVID Stop: 05/21/21 18:00 Sodium Chloride (Sodium Chloride 0.9% 10 Ml Syringe) 10 ml FLUSH ASDIRECTED PRN PRN Reason: Keep Vein Open Discontinued Medications Tranexamic Acid (Tranexamic Acid 1,000 Mg/10 Ml Amp) Confirm Administered Dose 1,000 mg .ROUTE .STK-MED ONE Stop: 05/21/21 06:20 Vancomycin HCl (Vancomycin 1 Gm Sdv) Confirm Administered Dose 1 gm .ROUTE .STK- MED ONE Stop: 05/21/21 06:20
[2021-05-21] MEDS ORDERED: Ondansetron 4 MG/2 ML SDV ONE (06:41)
[2021-05-21] MEDS ORDERED: fentaNYL 100 MCG/2 ML SDV ONE (06:42)
[2021-05-21] MEDS ORDERED: Midazolam 1 MG/ML 2 ML SDV ONE (06:42)
[2021-05-21] MEDS ORDERED: Lidocaine 1% 4 ML ONE (06:42)
[2021-05-21] MEDS ORDERED: Propofol 200 MG/20 ML SDV ONE ×2 (06:42→07:46)
[2021-05-21] MEDS ORDERED: ceFAZolin 1 GM Vial ONE (06:45)
[2021-05-21] MEDS ORDERED: Lactated Ringers 1,000 ML ONE (07:29)
[2021-05-21] MEDS: Morphine 8 MG, EPINEPHrine 0.3 MG, Cefuroxime 750 MG, Ketorolac 30 MG, Sodium Chloride ... PRN ×10 (08:10→08:23)
[2021-05-21] MEDS: Vancomycin 1 GM SDV ONE ×2 (08:18→08:24)
[2021-05-21] MEDS ORDERED: Ketorolac 30 MG/ML SDV IVPUSH PRN (08:43)
[2021-05-21] MEDS ORDERED: fentaNYL 100 MCG/2 ML SDV IVPUSH PRN (08:43)
--- NOTE | 2021-05-21 08:44 | PCM.POSTAN ---
POST ANESTHESIA ASSESSMENT - MENTAL STATUS Mental Status: Alert, Oriented - VITAL SIGNS Vital Signs: Last Vital Signs Temp 36.1 C 05/21/21 06:10 Pulse 76 05/21/21 06:10 Resp 16 05/21/21 06:10 BP 138/65 05/21/21 06:10 Pulse Ox 96 05/21/21 06:10 - RESPIRATORY Respiratory Status: Respiratory Rate WNL, Airway Patent, O2 Saturation Stable, Supplemental Oxygen - CARDIOVASCULAR CV Status: Pulse Rate WNL, Blood Pressure Stable - GASTROINTESTINAL GI Status: No Symptoms - PAIN Pain Score: 0 - POST OP HYDRATION Hydration Status: Adequate & Stable - OBSERVATIONS Free Text/Narrative:: no anesthesia complications noted
[2021-05-21] MEDS ORDERED: EPINEPHrine 1 MG/ML SDV ONE (08:46)
[2021-05-21] MEDS ORDERED: Ropivacaine 0.5% 5 MG/ML 30 ML SDV ONE (08:46)
--- NOTE | 2021-05-21 09:08 | PCM.SN.2 ---
- Free Text/Narrative Note: Left selective femoral nerve block at the adductor canal for post-procedure pain control under US guidance requested by Dr. Mix. Time Out: 851 Start: 851 End: 858 Chart reviewed. Consent signed. Questions answered. Appropriate monitors applied. Time out performed. Left mid-shaft femur identified with ultrasound, scanning medially of femur, the femoral artery in the adductor canal visualized, and the femoral nerve located laterally to the artery. The skin was prepped lateral to the ultrasound probe with chlorahexadine times two. The 21ga 4 insulated block needle was inserted under direct ultrasound guidance into the adductor canal. 20mL of 0.5% ropivacaine with 1:200,000 epinephrine was injected circumferentially around the nerve with intermittent negative aspiration noted. Patient tolerated the procedure well. Sterile technique noted along with sterile gloves, mask, and sterile probe cover. See picture on progress note and vital signs on nurses notes. Block completed in PACU. Barrett Montana CRNA Time Documentation
--- NOTE | 2021-05-21 09:56 | CR ---
Left knee: AP and crosstable lateral views of the left knee were obtained. Comparison: Prior left knee CT study of 05/11/21. Knee prosthesis is seen. Patellar prosthesis is noted. Components are aligned. Soft tissue air is seen. No underlying bony abnormality is appreciated. Impression: 1. Satisfactory postoperative radiographic appearance of recently placed left knee prostheses. Diagnostic code #2
[2021-05-21] MEDS ORDERED: oxyCODONE 5 MG Tab PO PRN (10:19)
[2021-05-21] MEDS ORDERED: Ondansetron 4 MG/2 ML SDV IVPUSH ONE (11:30)
--- NOTE | 2021-05-21 12:53 | PCM48HPAN ---
Post Anesthesia Note - EVALUATION WITHIN 48HRS OF ANESTHETIC Vital Signs in Normal Range: Yes Patient Participated in Evaluation: Yes Respiratory Function Stable: Yes Airway Patent: Yes Cardiovascular Function Stable: Yes Hydration Status Stable: Yes Pain Control Satisfactory: Yes Nausea and Vomiting Control Satisfactory: Yes Mental Status Recovered: Yes Vital Signs: Last Vital Signs Temp 36.3 C 05/21/21 09:40 Pulse 75 05/21/21 11:00 Resp 14 05/21/21 11:00 BP 103/55 L 05/21/21 11:00 Pulse Ox 99 05/21/21 11:00 - COMMENTS/OBSERVATIONS Free Text/Narrative:: NO ANESTHESIA COMPLICATIONS NOTED
--- NOTE | 2021-06-05 06:54 | PCM.OPNOTE ---
- General Post-Op/Procedure Note Date of Surgery/Procedure: 05/21/21 Operative Procedure(s): left total knee arthroplasty with [employer] Pre Op Diagnosis: left knee osteoarthrosis Post-Op Diagnosis: Same Anesthesia Technique: Local, MAC, Spinal Primary Surgeon: Ketan Mix Anesthesia Provider: Barrett Montana Furnace Clerk: Kay Mantilla Furnace Clerk: Missy Jimenez EBL in mLs: 100 Complications: None Condition: Good Free Text/Narrative:: 11/04 9mm 29x9
--- NOTE | 2021-06-05 07:28 | OR ---
DATE OF OPERATION: 05/21/2021 SURGEON: Ketan Mix MD OPERATION PERFORMED: Left total knee arthroplasty the Jennifer [employer] robotics. PREOPERATIVE DIAGNOSIS: Left knee osteoarthrosis. POSTOPERATIVE DIAGNOSIS: Left knee osteoarthrosis. ANESTHESIA: Local MAC with spinal. ANESTHESIA PROVIDER: Osmany Gonsalez. ASSISTANTS: Kay Mantilla PA-C; and Missy Jimenez LPN. ESTIMATED BLOOD LOSS: 100 mL. COMPLICATIONS: None. CONDITION: Stable. IMPLANTS: 1. Jennifer size 4 press-fit CR femur. 2. Annada size 3 press-fit tibial baseplate. 3. Jennifer size 3 9 mm CS polyethylene insert. 4. Annada size 29 x 9 mm press-fit patella. DESCRIPTION OF PROCEDURE: The patient was identified in the preop holding area. Proper site was marked and identified by the surgeon. The patient was taken back to the operating theater, where after adequate anesthesia, the patient's left lower extremity had a nonsterile tourniquet applied and then it was sterilely prepped and draped in the usual sterile fashion. OR time-out was performed. The patient received 2 g IV Ancef. Leg campoverde was then applied to the left lower extremity. At this time, the left lower extremity was exsanguinated. Tourniquet was insufflated to 250 mmHg. Standard anterior incision was made. Medial parapatellar arthrotomy was created. Deep fibers of the MCL were raised and anterior fat pad was resected. Attention was turned to the patella. Patella measured a 19, it was resected to a 13 for a 29 x 9 mm patella . Drill holes were then drilled. Attention was then turned to the femur. Two 4.0 Schanz pins were placed intra- incisionally on the femur for the Jennifer Kendall robotic array and then 2 more were placed on the tibia 3 fingerbreadths below the tibial tubercle. The Annada Kendall robotic arrays were placed on both the femur and the tibia at this time as well as checkpoints on the femur and tibia. Hip center rotation was then obtained. The medial and lateral malleoli were marked as well as the checkpoints were marked for the Jennifer Kendall robotic plan. The patient's knee was brought to full extension, varus and valgus stresses were applied, and then into 90 degrees of flexion. Jennfier Kendall robotic plan for this patient was then undertaken to match the flexion and extension gaps. A straight saw blade was then brought in. Tibial cut was completed as well as an anterior femoral cut, anterior chamfer cut, and posterior femoral cut. Saw blade was then switched out and the distal femoral cut as well as the posterior chamfer cut was completed. All bony fragments were removed. At this time, medial and lateral menisci were resected as well as any posterior osteophytes. Attention was turned to the tibia. The size 3 trial baseplate was placed on the tibia and a size 4 trial femur was placed on the femur. A size 3 9 mm trial poly was placed. The patient's knee was brought to full extension and flexion. Varus and valgus stresses were applied, was found to be stable with no instability. No signs of liftoff or loosening on the tibial baseplate. At this time, femoral drill holes were drilled, and the tibia was stamped and drilled in proper rotation. All trial implants were then removed. The size 3 tibial baseplate was impacted into place, size 4 femoral component was impacted into place, and then a size 3 9 mm CS polyethylene insert was impacted into place. A size 29 x 9 mm press-fit patella was then press-fit into place. The tourniquet was deflated. Bleeders were cauterized. 1 L pulse lavage irrigation with Ancef was irrigated through the knee along with 400 mL IrriSept irrigation. Periarticular injection was completed. Topical tranexamic acid and vancomycin powder were applied. All checkpoints and pins were removed. At this point, a #2 barbed suture was used for closure of the medial parapatellar arthrotomy in flexion. 2- 0 Vicryl and Stratafix were used for subcutaneous closure. Prineo was used for cutaneous closure. 3-0 nylons were used for closure of the pin holes on the tibia. The patient had a sterile soft dressing applied. The patient had an RENE wrap applied and was sent to PACU in stable condition. The patient tolerated the procedure well. MARGRET /[id number]
== END 2021-05-21 13:03 | disposition home or self-care (01) ==
LOC: JD.SDS 05:57
PROVIDERS: ATTEND Orthopaedic Surgery
DX: M17.12 Unilateral primary osteoarthritis, left knee (principal); I25.10 Atherosclerotic heart disease of native coronary artery without angina pectoris; I25.2 Old myocardial infarction; K21.9 Gastro-esophageal reflux disease without esophagitis; E78.5 Hyperlipidemia, unspecified; G43.909 Migraine, unspecified, not intractable, without status migrainosus; I10 Essential (primary) hypertension; E03.9 Hypothyroidism, unspecified; F17.210 Nicotine dependence, cigarettes, uncomplicated; Z88.5 Allergy status to narcotic agent; Z79.899 Other long term (current) drug therapy; Z79.82 Long term (current) use of aspirin; Z79.890 Hormone replacement therapy; Z98.890 Other specified postprocedural states
CPT/HCPCS: 27447; 73560; 97116; 97161; A9270; C1713; C1776; J0171; J0690; J0697; J1885; J2250; J2270; J2370; J2405; J2704; J2795; J3010; J3370; J7120; 01402

== ENCOUNTER 2021-11-28 10:52 | Emergency (ER) | payer MEDICARE, OTHER ==
[2021-11-28] MEDS ORDERED: Famotidine 20 MG/2 ML SDV IVPUSH ONE (11:02)
[2021-11-28] MEDS ORDERED: methylPREDNISolone Sodium Succinate 125 MG/2 ML SDV IVPUSH ONE (11:02)
[2021-11-28] MEDS ORDERED: diphenhydrAMINE 50 MG/ML SDV IVPUSH ONE (11:02)
[2021-11-28] MEDS ORDERED: Iopamidol 612 MG/ML 100 ML Bottle IVPUSH ONE (11:22)
[2021-11-28] MEDS: Sodium Chloride 0.9% 10 ML Syringe FLUSH PRN ×2 (11:36→12:07)
== END 2021-11-28 14:34 | disposition home or self-care (01) ==
LOC: JD.ED 10:52
DX: J02.9 Acute pharyngitis, unspecified (principal); E78.00 Pure hypercholesterolemia, unspecified; I10 Essential (primary) hypertension; I25.2 Old myocardial infarction; K21.9 Gastro-esophageal reflux disease without esophagitis; E03.9 Hypothyroidism, unspecified; M19.90 Unspecified osteoarthritis, unspecified site; E66.9 Obesity, unspecified; Z68.39 Body mass index [BMI] 39.0-39.9, adult; Z88.5 Allergy status to narcotic agent; Z79.899 Other long term (current) drug therapy; Z79.01 Long term (current) use of anticoagulants
CPT/HCPCS: 36415; 70491; 71045; 80053; 84484; 85025; 85610; 85652; 85730; 86140; 87651; 93005; 96374; 96375; 99284; J1200; J2930; J3490; Q9967

== ENCOUNTER 2022-08-20 11:23 | Emergency (ER) | payer MEDICARE, OTHER ==
[2022-08-20] MEDS ORDERED: Sodium Chloride 0.9% 10 ML Syringe FLUSH PRN (12:01)
[2022-08-20] MEDS ORDERED: Sodium Chloride 0.9% 10 ML Syringe FLUSH ONE (12:14)
[2022-08-20] MEDS ORDERED: Iopamidol 755 Mg/ML 100 ML Bottle IVPUSH ONE (12:14)
[2022-08-20] MEDS ORDERED: Sodium Chloride 0.9% 100 ML IV SCH (12:15)
[2022-08-20] MEDS ORDERED: Acetaminophen 325 MG Tab PO ONE (14:54)
== END 2022-08-20 17:20 | disposition home or self-care (01) ==
LOC: JD.ED 11:23
DX: R51.9 Headache, unspecified (principal); R42 Dizziness and giddiness; R26.89 Other abnormalities of gait and mobility; E78.00 Pure hypercholesterolemia, unspecified; I10 Essential (primary) hypertension; I25.2 Old myocardial infarction; K21.9 Gastro-esophageal reflux disease without esophagitis; E03.9 Hypothyroidism, unspecified; E66.9 Obesity, unspecified; Z88.5 Allergy status to narcotic agent; Z79.899 Other long term (current) drug therapy; Z79.01 Long term (current) use of anticoagulants; Z68.38 Body mass index [BMI] 38.0-38.9, adult
CPT/HCPCS: 36415; 70450; 70496; 70498; 70551; 80053; 82947; 84484; 85025; 85610; 85730; 93005; 99285; A9270; J3490; Q9967; 93010; 99284

== ENCOUNTER 2022-12-15 11:23 | Emergency (ER) | payer MEDICARE, OTHER ==
[2022-12-15 12:45] LABS: BASOPHILS ABSOLUTE AUTO 0.04 K/mm3 (0.01-0.08); BASOPHILS PERCENT AUTO 0.4 % (0.1-1.2); HEMATOCRIT 41.3 % (34.1-44.9); HEMOGLOBIN 13.4 gm/dl (11.2-15.7); IMMATURE GRAN ABSOLUTE AUTO 0.03 K/mm3 (0.00-0.10); IMMATURE GRAN PERCENT AUTO 0.3 % (<=1.0); LYMPHOCYTES ABSOLUTE AUTO 2.64 K/mm3 (1.18-3.74); LYMPHOCYTES PERCENT AUTO 27.1 % (19.3-51.7); MEAN CORPUSCULAR HGB CONC 32.4 g/dl (32.2-35.5); MEAN CORPUSCULAR VOLUME 83.3 fl (79.4-94.8); MEAN PLATELET VOLUME 9.6 fl (9.4-12.3); MONOCYTES ABSOLUTE AUTO 0.75 K/mm3 (0.24-0.36); MONOCYTES PERCENT AUTO 7.7 % (4.7-12.5); NEUTROPHILS ABSOLUTE AUTO 6.18 K/mm3 (1.56-6.13); NEUTROPHILS PERCENT AUTO 63.5 % (34.0-71.1); PLATELET COUNT,PLT 359 K/mm3 (182-369); RED BLOOD CELL COUNT 4.96 M/mm3 (3.98-5.22); WHITE BLOOD CELL COUNT,WBC 9.74 K/mm3 (3.98-10.04)
[2022-12-15 12:58] LABS: A/G RATIO 0.9 (1-2); ALANINE AMINOTRANSFERASE,ALT 30 U/L (14-59); ALBUMIN 3.5 g/dl (3.4-5.0); ALKALINE PHOSPHATASE 81 U/L (46-116); ASPARTATE AMNIOTRANSFERASE,AST 20 U/L (15-37); BILIRUBIN TOTAL 0.4 mg/dL (0.2-1.0); BLOOD UREA NITROGEN,BUN 16 mg/dL (7-18); CALCIUM 8.7 mg/dL (8.5-10.1); CARBON DIOXIDE,CO2 25 mEq/L (21-32); CHLORIDE,CL 99 mEq/L (98-107); ESTIMATED GFR 61 mL/min (>60); GLUCOSE RANDOM 122 mg/dL (70-99); PROTEIN TOTAL,TP 7.4 g/dl (6.4-8.2); SODIUM,NA 135 mEq/L (136-145); TROPONIN I HIGH SENSITIVITY 6 pg/mL (<=51)
[2022-12-15] MEDS ORDERED: Lactated Ringers 500 ML IV ONE (12:59)
[2022-12-15] MEDS ORDERED: Ketorolac 15 MG/ML SDV IVPUSH ONE (13:00)
[2022-12-15] MEDS ORDERED: diphenhydrAMINE 50 MG/ML SDV IVPUSH ONE (13:00)
[2022-12-15] MEDS ORDERED: Ondansetron 4 MG/2 ML SDV IVPUSH ONE (13:00)
[2022-12-15 13:07] LABS: INR 0.96; PROTHROMBIN TIME 10.3 SECONDS (9.7-12.0)
[2022-12-15 13:09] LABS: PTT,PARTIAL THROMBOPLSTIN TIME 27.6 SECONDS (21.7-31.4)
[2022-12-15] MEDS ORDERED: Potassium Chloride 20 MEQ Tab.ER PO ONE (13:33)
== END 2022-12-15 13:43 ==
LOC: JD.ED 11:23
DX: I63.9 Cerebral infarction, unspecified (principal); R29.706 NIHSS score 6; G43.409 Hemiplegic migraine, not intractable, without status migrainosus; E87.6 Hypokalemia; I25.2 Old myocardial infarction; E78.00 Pure hypercholesterolemia, unspecified; I10 Essential (primary) hypertension; K21.9 Gastro-esophageal reflux disease without esophagitis; E03.9 Hypothyroidism, unspecified; E66.9 Obesity, unspecified; Z88.5 Allergy status to narcotic agent; Z68.30 Body mass index [BMI] 30.0-30.9, adult; Z79.899 Other long term (current) drug therapy; Z79.01 Long term (current) use of anticoagulants
CPT/HCPCS: 36415; 70450; 80053; 82947; 84484; 85025; 85610; 85730; 93005; 96374; 96375; 99285; A9270; J1200; J1885; J2405; J7120; 93010

== ENCOUNTER 2023-01-09 10:36 | Emergency (ER) | payer MEDICARE, OTHER ==
[2023-01-09] MEDS ORDERED: Sodium Chloride 0.9% 1,000 ML IV ONE (11:04)
[2023-01-09] MEDS ORDERED: Ketorolac 30 MG/ML SDV IVPUSH ONE (11:21)
[2023-01-09] MEDS ORDERED: diphenhydrAMINE 50 MG/ML SDV IVPUSH ONE (11:21)
[2023-01-09] MEDS ORDERED: Metoclopramide 10 MG/2 ML SDV IVPUSH ONE (11:21)
[2023-01-09] MEDS ORDERED: LORazepam 2 MG/ML SDV IVPUSH ONE (12:59)
[2023-01-09] MEDS ORDERED: HYDROmorphone 0.5 MG/0.5 ML Syringe IVPUSH ONE (13:56)
[2023-01-09] MEDS ORDERED: Dexamethasone 10 MG/ML SDV IVPUSH ONE (14:35)
== END 2023-01-09 15:07 | disposition home or self-care (01) ==
LOC: JD.ED 10:36
DX: G43.909 Migraine, unspecified, not intractable, without status migrainosus (principal); E78.00 Pure hypercholesterolemia, unspecified; I10 Essential (primary) hypertension; I25.2 Old myocardial infarction; K21.9 Gastro-esophageal reflux disease without esophagitis; E03.9 Hypothyroidism, unspecified; E66.9 Obesity, unspecified; Z68.35 Body mass index [BMI] 35.0-35.9, adult; Z88.5 Allergy status to narcotic agent; Z79.899 Other long term (current) drug therapy
CPT/HCPCS: 96361; 96374; 96375; 99283; J1100; J1170; J1200; J1885; J2060; J2765; J7030; 99284

== ENCOUNTER 2023-11-30 14:22 | Inpatient (IN) | payer MEDICARE, OTHER ==
[2023-11-30] MEDS: Iopamidol 755 Mg/ML 100 ML Bottle IVPUSH ONE (15:00)
[2023-11-30] MEDS: Sodium Chloride 0.9% 10 ML Syringe FLUSH ONE (15:01)
[2023-11-30] MEDS: Sodium Chloride 0.9% 100 ML IV SCH (15:01)
[2023-11-30 15:04] LABS: BASOPHILS ABSOLUTE AUTO 0.1 K/mm3 (0.0-0.2); BASOPHILS PERCENT AUTO 0.7 % (0.0-1.0); EOSINOPHILS ABSOLUTE AUTO 0.2 K/mm3 (0.0-0.4); HEMATOCRIT 41.1 % (37.0-47.0); HEMOGLOBIN 13.6 gm/dl (12.0-16.0); IMMATURE GRAN ABSOLUTE AUTO 0.04 K/mm3 (0.00-0.05); IMMATURE GRAN PERCENT AUTO 0.4 % (0.0-0.4); LYMPHOCYTES ABSOLUTE AUTO 2.7 K/mm3 (1.0-4.8); LYMPHOCYTES PERCENT AUTO 30.8 % (24.0-44.0); MEAN CORPUSCULAR HEMOGLOBIN 27.8 pg (28.0-32.0); MEAN CORPUSCULAR HGB CONC 33.1 g/dl (32.0-36.0); MONOCYTES ABSOLUTE AUTO 0.4 K/mm3 (0.0-0.8); MONOCYTES PERCENT AUTO 4.9 % (0.0-8.0); NEUTROPHILS ABSOLUTE AUTO 5.5 K/mm3 (1.8-7.7); NEUTROPHILS PERCENT AUTO 61.2 % (41.0-71.0); PLATELET COUNT,PLT 355 K/mm3 (150-400); RED BLOOD CELL COUNT 4.89 M/mm3 (4.10-5.30); WHITE BLOOD CELL COUNT,WBC 8.91 K/mm3 (3.9-11.3)
[2023-11-30] MEDS: Metoclopramide 10 MG/2 ML SDV IVPUSH ONE (15:11)
[2023-11-30] MEDS: Sodium Chloride 0.9% 10 ML Syringe FLUSH PRN (15:11)
[2023-11-30] MEDS: Ketorolac 30 MG/ML SDV IVPUSH ONE (15:11)
[2023-11-30] MEDS: diphenhydrAMINE 50 MG/ML SDV IVPUSH ONE (15:11)
[2023-11-30] MEDS: Sodium Chloride 0.9% 1,000 ML IV ONE (15:13)
[2023-11-30 15:26] LABS: INR 0.96; PROTHROMBIN TIME 10.3 SECONDS (9.7-12.0)
[2023-11-30 15:28] LABS: PTT,PARTIAL THROMBOPLSTIN TIME 28.5 SECONDS (21.7-31.4)
[2023-11-30 15:31] LABS: D-DIMER QUANTITATIVE 0.6 mg/L (0.19-0.50)
[2023-11-30 15:38] LABS: ALBUMIN 3.6 g/dl (3.4-5.0); BILIRUBIN TOTAL 0.4 mg/dL (0.2-1.0); BUN/CREATININE RATIO 11.8 (14-18); CALCIUM 9.2 mg/dL (8.5-10.1); CREATININE 1.1 mg/dL (0.55-1.02); EST CRCL DRUG DOSING (CG) 48.69 mL/min; PROTEIN TOTAL,TP 7.4 g/dl (6.4-8.2)
[2023-11-30] MEDS ORDERED: Formoterol/Mometasone 100-5 MCG 8.8 GM Inhaler IH ONE (16:51)
[2023-11-30] MEDS: Meclizine 25 MG Tab PO ONE (16:57)
[2023-11-30] MEDS ORDERED: Ondansetron 4 MG Tab.DIS PO PRN (18:15)
[2023-11-30] MEDS ORDERED: Ondansetron 4 MG/2 ML SDV IV PRN (18:15)
[2023-11-30] MEDS: Potassium Chloride 20 MEQ Tab.ER PO ONE (18:18)
[2023-11-30] MEDS: Aspirin 81 MG Tab.Chew PO ONE (19:04)
[2023-11-30] MEDS: Heparin Sodium 5,000 Units/ML Vial SUBCUT SCH (19:04)
[2023-12-01 05:56] LABS: BASOPHILS ABSOLUTE AUTO 0.1 K/mm3 (0.0-0.2); BASOPHILS PERCENT AUTO 0.6 % (0.0-1.0); EOSINOPHILS ABSOLUTE AUTO 0.3 K/mm3 (0.0-0.4); EOSINOPHILS PERCENT AUTO 3.2 % (0.0-6.0); HEMATOCRIT 36.2 % (37.0-47.0); IMMATURE GRAN ABSOLUTE AUTO 0.03 K/mm3 (0.00-0.05); IMMATURE GRAN PERCENT AUTO 0.4 % (0.0-0.4); LYMPHOCYTES ABSOLUTE AUTO 2.5 K/mm3 (1.0-4.8); LYMPHOCYTES PERCENT AUTO 31.1 % (24.0-44.0); MEAN CORPUSCULAR HEMOGLOBIN 27.8 pg (28.0-32.0); MEAN CORPUSCULAR HGB CONC 33.1 g/dl (32.0-36.0); MEAN CORPUSCULAR VOLUME 83.8 fl (83.0-99.0); MONOCYTES ABSOLUTE AUTO 0.5 K/mm3 (0.0-0.8); MONOCYTES PERCENT AUTO 5.5 % (0.0-8.0); NEUTROPHILS ABSOLUTE AUTO 4.8 K/mm3 (1.8-7.7); NEUTROPHILS PERCENT AUTO 59.2 % (41.0-71.0); PLATELET COUNT,PLT 308 K/mm3 (150-400); RED BLOOD CELL COUNT 4.32 M/mm3 (4.10-5.30); WHITE BLOOD CELL COUNT,WBC 8.16 K/mm3 (3.9-11.3)
[2023-12-01 06:22] LABS: A/G RATIO 0.9 (1-2); ALBUMIN 2.9 g/dl (3.4-5.0); ANION GAP 12.9 (5-15); BILIRUBIN TOTAL 0.3 mg/dL (0.2-1.0); BUN/CREATININE RATIO 14.5 (14-18); CALCIUM 8.7 mg/dL (8.5-10.1); CREATININE 1.1 mg/dL (0.55-1.02); EST CRCL DRUG DOSING (CG) 48.69 mL/min; MAGNESIUM 2.3 mg/dL (1.8-2.4); POTASSIUM,K 2.9 mEq/L (3.5-5.1)
[2023-12-01] MEDS: Acetaminophen 325 MG Tab PO PRN (08:26)
[2023-12-01] MEDS: Ketorolac 10 MG Tab PO ONE (10:33)
[2023-12-01] MEDS: Promethazine 25 MG Tab PO ONE (10:34)
[2023-12-01] MEDS: HYDROmorphone 2 MG Tab PO ONE (13:26)
[2023-12-01] MEDS: Potassium Chloride 10 MEQ in Premix Bag 1 BAG IV SCH (14:48)
[2023-12-01] MEDS: Dextrose 5%-0.45% NaCl 1,000 ML IV SCH (15:00)
[2023-12-01] MEDS: Potassium Chloride 20 MEQ Tab.ER PO SCH (15:05)
[2023-12-01] MEDS: Acetaminophen/Butalbital/Caffeine 325-50-40 MG Tab PO PRN (15:05)
[2023-12-01] MEDS: Propranolol 10 MG Tab PO SCH (15:06)
[2023-12-01] MEDS: Nicotine Polacrilex 2 MG Gum CHEW PRN (15:20)
[2023-12-01] MEDS: Magnesium Sulfate/Water 2 GM in Premix Bag 1 BAG IV ONE (18:59)
[2023-12-01] MEDS: Prochlorperazine 5 MG Tab PO PRN (20:55)
[2023-12-01] MEDS: Valproate Sodium 500 MG in Sodium Chloride 0.9% 100 ML IV ONE ×2 (21:24→21:26)
[2023-12-02 06:29] LABS: ANION GAP 15.7 (5-15); BUN/CREATININE RATIO 11.8 (14-18); CALCIUM 8.9 mg/dL (8.5-10.1); CREATININE 1.1 mg/dL (0.55-1.02); EST CRCL DRUG DOSING (CG) 48.69 mL/min; POTASSIUM,K 3.7 mEq/L (3.5-5.1)
[2023-12-02] MEDS: Potassium Bicarbonate/Cit Ac 20 MEQ Effervescent Tab PO ONE (10:07)
[2023-12-02] MEDS: Divalproex Sodium Delayed-Release 500 MG Tab.CR PO ONE (11:46)
[2023-12-03] MEDS ORDERED: Divalproex Sodium 250 MG Tab.ER PO SCH (07:00)
== END 2023-12-02 12:17 | disposition home or self-care (01) | DRG 103 ==
LOC: JD.ED 14:22 → JD.MS 17:51 → OBSVTOIN 12-01 17:59
PROVIDERS: ADMIT Internal Medicine; ATTEND Internal Medicine
DX: G43.909 Migraine, unspecified, not intractable, without status migrainosus (principal); G43.419 Hemiplegic migraine, intractable, without status migrainosus; H54.7 Unspecified visual loss; R42 Dizziness and giddiness; E78.00 Pure hypercholesterolemia, unspecified; K59.09 Other constipation; I10 Essential (primary) hypertension; M19.90 Unspecified osteoarthritis, unspecified site; M54.9 Dorsalgia, unspecified; G89.29 Other chronic pain; F41.9 Anxiety disorder, unspecified; F32.A Depression, unspecified; K21.9 Gastro-esophageal reflux disease without esophagitis; E03.9 Hypothyroidism, unspecified; F17.210 Nicotine dependence, cigarettes, uncomplicated; R26.89 Other abnormalities of gait and mobility; H53.149 Visual discomfort, unspecified; E87.6 Hypokalemia; E66.9 Obesity, unspecified; I25.2 Old myocardial infarction; Z88.0 Allergy status to penicillin; Z88.5 Allergy status to narcotic agent; Z88.8 Allergy status to other drugs, medicaments and biological substances; Z79.899 Other long term (current) drug therapy; Z98.49 Cataract extraction status, unspecified eye; Z90.710 Acquired absence of both cervix and uterus; Z98.890 Other specified postprocedural states; Z68.33 Body mass index [BMI] 33.0-33.9, adult
CPT/HCPCS: 36415; 70450; 70450-26; 70496; 70496-26; 70498; 70498-26; 80048; 80053; 82947; 83735; 84484; 85025; 85379; 85610; 85730; 93005; 93010; 96361; 96365; 96366; 96372; 96374; 96375; 96376; 99284; 99285-25; A9270-GY; G0378; J1200; J1644; J1885; J2765; J3480; J3490; J7030; J7042; J8597; Q0164; Q9967

== ENCOUNTER 2024-09-09 06:45 | Day surgery (SDC) | payer MEDICARE, OTHER ==
[~2024-09-09 06:45] MED LIST changes: -Lidocaine 1%/Sod Bicarbonate in NS 8.4% 1 ML Syringe IDERM PRN; +Sodium Chloride 0.9% 10 ML Syringe FLUSH SCH
[2024-09-09] MEDS: Lactated Ringers 1,000 ML IV SCH (07:00)
[2024-09-09] MEDS ORDERED: Propofol 200 MG/20 ML SDV ONE (07:13)
[2024-09-09] MEDS ORDERED: Midazolam 1 MG/ML 2 ML SDV ONE (07:13)
[2024-09-09] MEDS ORDERED: Lidocaine 1% 4 ML ONE (07:18)
== END 2024-09-09 08:50 | disposition home or self-care (01) ==
LOC: JD.SDS 06:45
PROVIDERS: ATTEND Surgery
DX: Z12.11 Encounter for screening for malignant neoplasm of colon (principal); D12.0 Benign neoplasm of cecum; D12.2 Benign neoplasm of ascending colon; K62.1 Rectal polyp; K29.50 Unspecified chronic gastritis without bleeding; K57.30 Diverticulosis of large intestine without perforation or abscess without bleeding; F31.9 Bipolar disorder, unspecified; I10 Essential (primary) hypertension; E78.00 Pure hypercholesterolemia, unspecified; E03.9 Hypothyroidism, unspecified; Z79.890 Hormone replacement therapy; Z79.82 Long term (current) use of aspirin; Z79.899 Other long term (current) drug therapy
CPT/HCPCS: 43239; 45380; 45385; J2250; J2704; J7120; 00813; 88305; 99100; J3490

== ENCOUNTER 2024-10-26 08:14 | Day surgery (SDC) | payer MEDICARE, OTHER ==
[~2024-10-26 08:14] MED LIST changes: +Acetaminophen 325 MG Tab PO ONE; +Dexamethasone 4 MG/ML 5 ML MDV ONE; +Lidocaine 1% 5 ML VIAL ONE; +Ondansetron 4 MG/2 ML SDV ONE; +Rocuronium 50 MG/5 ML Vial ONE; -Sodium Chloride 0.9% 10 ML Syringe FLUSH SCH; +ceFAZolin 2 GM Vial ONE; +ePHEDrine 50 MG/ML SDV ONE; +fentaNYL 250 MCG/5 ML SDV ONE; +propofoL 500 MG/50 ML 50 ML ONE
[2024-10-26] MEDS ORDERED: Sugammadex Sodium 200 MG/2 ML VIAL IV ONE (08:33)
[2024-10-26] MEDS: Lactated Ringers 1,000 ML IV SCH (08:45)
[2024-10-26] MEDS ORDERED: Sodium Chloride 0.9% 10 ML Syringe FLUSH SCH (09:00)
[2024-10-26] MEDS: EPINEPHrine 1 MG/ML SDV ONE (09:20)
[2024-10-26] MEDS: Bupivacaine 0.5% 30 ML SDV ONE (09:20)
[2024-10-26] MEDS ORDERED: HYDROmorphone 0.5 MG/0.5 ML Syringe IVPUSH PRN (09:21)
[2024-10-26] MEDS ORDERED: fentaNYL 100 MCG/2 ML SDV IVPUSH PRN (09:21)
[2024-10-26] MEDS: Ondansetron 4 MG/2 ML SDV IVPUSH PRN (10:20)
[2024-10-26] MEDS: traMADol 50 MG Tab PO PRN (11:28)
== END 2024-10-26 13:28 | disposition home or self-care (01) ==
LOC: JD.SDS 08:14
PROVIDERS: ATTEND Surgery
DX: K81.1 Chronic cholecystitis (principal); K82.8 Other specified diseases of gallbladder; I10 Essential (primary) hypertension; E03.9 Hypothyroidism, unspecified; Z88.8 Allergy status to other drugs, medicaments and biological substances; Z88.0 Allergy status to penicillin; Z88.5 Allergy status to narcotic agent; Z86.16 Personal history of COVID-19; Z79.82 Long term (current) use of aspirin; Z79.899 Other long term (current) drug therapy; Z79.890 Hormone replacement therapy
CPT/HCPCS: 47562; 88304; A9270; J0171; J0665; J0690; J1100; J2003; J2405; J2704; J3010; J7120; 00790; 99100; J3490